=== PATIENT | male | born 1950 | race Caucasian/White ===

== ENCOUNTER 2017-02-03 07:00 | Inpatient (IN) | payer OTHER ==
[2017-02-03] MEDS ORDERED: methylPREDNISolone SOD SUCCI 125 MG/2 ML VIAL IV STA (07:07)
--- NOTE | 2017-02-03 07:09 | ED ---
General Adult HPI - General Chief complaint: Shortness of Breath Stated complaint: MARTHA Time Seen by Provider: 02/03/17 07:00 Source: patient, EMS, RN notes reviewed Mode of arrival: EMS Limitations: no limitations - History of Present Illness Initial comments: This is a 66-year-old male who presents emergency Department stating he does not know if he has COPD but he does take daily breathing treatments. Patient states she was a smoker up until about one month ago. Patient states over the last 2 weeks his difficulty breathing is gotten worse he continues to more treatments but it got to the point today that he needed to call EMS. Patient denies any recent fever chills or cough. Patient denies any palpitations or chest pain. Patient denies any abdominal pain patient denies nausea vomiting diarrhea. Patient denies lightheadedness dizziness or near syncopal episode. Patient denies headache patient denies numbness weakness. Patient states she moved here from [place] a few months ago because the breathing there was worsening and is here. Patient denies any injury or trauma. Patient denies any leg swelling or calf pain. - Related Data Home Medications Medication Instructions Recorded Confirmed Albuterol Inhaler [Ventolin Hfa 2 puff INHALATION RT-Q6H PRN 02/03/17 02/03/17 Inhaler] Albuterol Nebulized [Ventolin 2.5 mg INHALATION RT-TID PRN 02/03/17 02/03/17 Nebulized] Albuterol Sulfate [Proair Hfa] 1 - 2 puff INHALATION RT-Q6H PRN 02/03/17 Fluticasone/Salmeterol [Advair 1 puff INHALATION RT-BID 02/03/17 02/03/17 250-50 Diskus] Ibuprofen [Motrin] 600 mg PO BID PRN 02/03/17 02/03/17 Montelukast [Singulair] 10 mg PO HS 02/03/17 02/03/17 diphenhydrAMINE HCL [Benadryl] 50 mg PO HS PRN 02/03/17 02/03/17 Allergies Allergy/AdvReac Type Severity Reaction Status Date / Time acetaminophen [From Tylenol] AdvReac Nausea & Verified 02/03/17 08:19 Vomiting Review of Systems ROS Statement: Those systems with pertinent positive or pertinent negative responses have been documented in the HPI. ROS Other: All systems not noted in ROS Statement are negative. Past Medical History Past Medical History: COPD, Hypertension History of Any Multi-Drug Resistant Organisms: None Reported Past Surgical History: Appendectomy Past Psychological History: No Psychological Hx Reported Smoking Status: Former smoker Past Alcohol Use History: Occasional Past Drug Use History: None Reported General Exam - General Exam Comments Initial Comments: GENERAL: Patient is well-developed and well-nourished. Patient is nontoxic and well- hydrated and is in moderate distress. ENT: Neck is soft and supple. No significant lymphadenopathy is noted. Oropharynx is clear. Moist mucous membranes. Neck has full range of motion without eliciting any pain. EYES: The sclera were anicteric and conjunctiva were pink and moist. Extraocular movements were intact and pupils were equal round and reactive to light. Eyelids were unremarkable. PULMONARY: Patient is wheezing diffusely CARDIOVASCULAR: Patient is tachycardic at about 115 beats a minute ABDOMEN: Soft and nontender with normal bowel sounds. No palpable organomegaly was noted. There is no palpable pulsatile mass. SKIN: Skin is clear with no lesions or rashes and otherwise unremarkable. NEUROLOGIC: Patient is alert and oriented x3. Cranial nerves II through XII are grossly intact. Motor and sensory are also intact. Normal speech, volume and content. Symmetrical smile. MUSCULOSKELETAL: Normal extremities with adequate strength and full range of motion. No lower extremity swelling or edema. No calf tenderness. LYMPHATICS: No significant lymphadenopathy is noted PSYCHIATRIC: Normal psychiatric evaluation. Normal interpersonal interactions appears functionally intact in deals appropriately with others. No signs of depression. No signs of anxiety. Limitations: no limitations Course Vital Signs 02/03/17 02/03/17 02/03/17 07:02 07:18 07:37 Pulse Rate 117 H 98 Respiratory 26 H 24 Rate Blood Pressure 205/106 O2 Sat by Pulse 98 97 Oximetry 02/03/17 08:13 Pulse Rate 103 H Respiratory 24 Rate Blood Pressure 152/75 O2 Sat by Pulse 90 L Oximetry Medical Decision Making - Medical Decision Making patient's EKG shows sinus tachycardia at 116 bpm VA interval 258 QRSs in 2 QT interval 310 QTC is 4:30. Patient's EKG shows no ST segment elevation or depression or T wave abnormalities are noted. Chest x-ray showed no signs of pneumonia. After patient received 3 consecutive treatments and steroids patient started feel better though. Patient's oxygenation was in the low 90s - Lab Data Result diagrams: 02/03/17 07:06 02/03/17 07:06 Lab Results 02/03/17 02/03/17 02/03/17 Range/Units 07:06 07:06 07:06 WBC 8.4 (3.8-10.6) k/uL RBC 5.47 (4.30-5.90) m/uL Hgb 15.6 (13.0-17.5) gm/dL Hct 50.9 (39.0-53.0) % MCV 93.0 (80.0-100.0) fL MCH 28.6 (25.0-35.0) pg MCHC 30.7 L (31.0-37.0) g/dL RDW 15.1 (11.5-15.5) % Plt Count 194 (150-450) k/uL Neutrophils % 63 % Lymphocytes % 16 % Monocytes % 6 % Eosinophils % 11 % Basophils % 1 % Neutrophils # 5.3 (1.3-7.7) k/uL Lymphocytes # 1.4 (1.0-4.8) k/uL Monocytes # 0.5 (0-1.0) k/uL Eosinophils # 0.9 H (0-0.7) k/uL Basophils # 0.1 (0-0.2) k/uL PT (9.0-12.0) sec INR (<1.2) APTT (22.0-30.0) sec Sodium 145 (137-145) mmol/L Potassium 4.8 (3.5-5.1) mmol/L Chloride 105 (98-107) mmol/L Carbon Dioxide 29 (22-30) mmol/L Anion Gap 11 mmol/L BUN 16 (9-20) mg/dL Creatinine 0.90 (0.66-1.25) mg/dL Est GFR (MDRD) Af Amer >60 (>60 ml/min/1.73 sqM) Est GFR (MDRD) Non-Af >60 (>60 ml/min/1.73 sqM) Glucose 123 H (74-99) mg/dL Calcium 8.9 (8.4-10.2) mg/dL Magnesium 2.2 (1.6-2.3) mg/dL Total Bilirubin 0.4 (0.2-1.3) mg/dL AST 22 (17-59) U/L ALT 32 (21-72) U/L Alkaline Phosphatase 83 (38-126) U/L Total Creatine Kinase 69 (55-170) U/L CK-MB (CK-2) 1.0 (0.0-2.4) ng/mL CK-MB (CK-2) Rel Index 1.4 Troponin I <0.012 (0.000-0.034) ng/mL NT-Pro-B Natriuret Pep pg/mL Total Protein 7.3 (6.3-8.2) g/dL Albumin 4.3 (3.5-5.0) g/dL 02/03/17 02/03/17 Range/Units 07:06 07:06 WBC (3.8-10.6) k/uL RBC (4.30-5.90) m/uL Hgb (13.0-17.5) gm/dL Hct (39.0-53.0) % MCV (80.0-100.0) fL MCH (25.0-35.0) pg MCHC (31.0-37.0) g/dL RDW (11.5-15.5) % Plt Count (150-450) k/uL Neutrophils % % Lymphocytes % % Monocytes % % Eosinophils % % Basophils % % Neutrophils # (1.3-7.7) k/uL Lymphocytes # (1.0-4.8) k/uL Monocytes # (0-1.0) k/uL Eosinophils # (0-0.7) k/uL Basophils # (0-0.2) k/uL PT 9.8 (9.0-12.0) sec INR 1.0 (<1.2) APTT 26.1 (22.0-30.0) sec Sodium (137-145) mmol/L Potassium (3.5-5.1) mmol/L Chloride (98-107) mmol/L Carbon Dioxide (22-30) mmol/L Anion Gap mmol/L BUN (9-20) mg/dL Creatinine (0.66-1.25) mg/dL Est GFR (MDRD) Af Amer (>60 ml/min/1.73 sqM) Est GFR (MDRD) Non-Af (>60 ml/min/1.73 sqM) Glucose (74-99) mg/dL Calcium (8.4-10.2) mg/dL Magnesium (1.6-2.3) mg/dL Total Bilirubin (0.2-1.3) mg/dL AST (17-59) U/L ALT (21-72) U/L Alkaline Phosphatase (38-126) U/L Total Creatine Kinase (55-170) U/L CK-MB (CK-2) (0.0-2.4) ng/mL CK-MB (CK-2) Rel Index Troponin I (0.000-0.034) ng/mL NT-Pro-B Natriuret Pep 278 pg/mL Total Protein (6.3-8.2) g/dL Albumin (3.5-5.0) g/dL Disposition Clinical Impression: COPD with acute exacerbation Disposition: ADMITTED IP TO THIS HOSP Referrals: None,Stated [Primary Care Provider] - 1-2 days Time of Disposition: 10:02
[2017-02-03 07:28] LABS: Basophils # (A) 0.1 k/uL (0-0.2); Basophils % (A) 1 %; CH 28.9; CHCM 31.2; Eosinophils # (A) 0.9 k/uL (0-0.7); Eosinophils % (A) 11 %; HCT 50.9 % (39.0-53.0); HGB 15.6 gm/dL (13.0-17.5); Luc # (Auto) 0.18; Luc % (Auto) 2; Lymphocytes # (A) 1.4 k/uL (1.0-4.8); Lymphocytes % (A) 16 %; MCH 28.6 pg (25.0-35.0); MCHC 30.7 g/dL (31.0-37.0); Mean Platelet Volume 8.6; Monocytes # (A) 0.5 k/uL (0-1.0); Monocytes % (A) 6 %; Neutrophils # (A) 5.3 k/uL (1.3-7.7); Neutrophils % (A) 63 %; RBC 5.47 m/uL (4.30-5.90); RDW 15.1 % (11.5-15.5); WBC 8.4 k/uL (3.8-10.6)
[2017-02-03] MEDS: ALBUTEROL NEBULIZED 2.5 MG/3 ML INHALATION STA ×2 (07:36→11:57)
[2017-02-03 07:38] LABS: ALT 32 U/L (21-72); AST 22 U/L (17-59); Alkaline Phosphatase 83 U/L (38-126); Anion Gap 11 mmol/L; Blood Urea Nitrogen 16 mg/dL (9-20); Calcium 8.9 mg/dL (8.4-10.2); Carbon Dioxide 29 mmol/L (22-30); Chloride 105 mmol/L (98-107); Glucose 123 mg/dL (74-99); Magnesium 2.2 mg/dL (1.6-2.3); Non-African American GFR(MDRD) >60 (>60 ml/min/1.73 sqM); Partial Thromboplastin Time 26.1 sec (22.0-30.0); Potassium 4.8 mmol/L (3.5-5.1); Prothrombin Time 9.8 sec (9.0-12.0); Sodium 145 mmol/L (137-145); Total Bilirubin 0.4 mg/dL (0.2-1.3); Total Protein 7.3 g/dL (6.3-8.2)
--- NOTE | 2017-02-03 08:19 | XR ---
EXAMINATION TYPE: XR chest 2V DATE OF EXAM: 02/03/2017 COMPARISON: NONE HISTORY: Shortness of breath with history of asthma TECHNIQUE: Frontal and lateral views of the chest are obtained. FINDINGS: There is no focal air space opacity, pleural effusion, or pneumothorax seen. Peribronchial cuffing is appreciated around the segmental bronchi to the left lower lobe. The cardiac silhouette size is within normal limits. The osseous structures are intact. IMPRESSION: Peribronchial thickening surrounding the segmental bronchi to the left lower lobe sugges tive of bronchitis.
[2017-02-03 08:39] LABS: Troponin I <0.012 ng/mL (0.000-0.034)
[2017-02-03 08:56] LABS: Creatine Kinase 69 U/L (55-170)
[2017-02-03] MEDS ORDERED: SODIUM CHLORIDE 0.9% 1,000 ML IV STA (10:20)
[2017-02-03] MEDS ORDERED: ALBUTEROL NEBULIZED (CONC) 2.5 MG, SODIUM CHLORIDE 0.9% NEBULIZ 3 ML INHALATION STA ×2 (11:52)
[2017-02-03] MEDS ORDERED: ALBUTEROL NEBULIZED 2.5 MG/3 ML INHALATION PRN (12:35)
[2017-02-03] MEDS ORDERED: BENZONATATE 100 MG CAP PO PRN (12:35)
[2017-02-03] MEDS ORDERED: RX INFO: IV CONTRAST WAS GIVEN 1 EACH MISC MISCELLANE PRN (12:37)
[2017-02-03] MEDS ORDERED: ONDANSETRON 4 MG/2 ML VIAL IVP PRN (12:40)
[2017-02-03] MEDS ORDERED: MELATONIN 3 MG TABLET PO PRN (12:41)
[2017-02-03] MEDS ORDERED: HYDROcodone/APAP 5-325MG 1 EACH TAB PO PRN (12:41)
[2017-02-03] MEDS ORDERED: DOCUSATE 100 MG CAP PO PRN (12:41)
--- NOTE | 2017-02-03 14:21 | CT ---
EXAMINATION TYPE: CT chest angio for PE DATE OF EXAM: 02/03/2017 COMPARISON: Chest x-ray 02/03/2017 HISTORY: Dyspnea CT DLP: 786 mGycm Automated exposure control for dose reduction was used. CONTRAST: CT Chest for pulmonary embolism performed with with IV Contrast, patient injected with 100 mL of Omni paque 350. FINDINGS: LUNGS: The lungs are remarkable for a soft tissue nodule in the right lower lobe measuring 12 mm imme diately anterior to the spine to the right of midline in the right lower lobe bronchial wall thickeni ng is somewhat diffuse compatible with chest x-ray findings. There is no pleural effusion or pneumoth orax seen. The tracheobronchial tree is patent. MEDIASTINUM: There is satisfactory enhancement of the pulmonary artery and its branches, there is no CT evidence for pulmonary embolism. There are no greater than 1 cm hilar or mediastinal lymph nodes. Pulmonary artery mildly prominent. No pericardial effusion is seen. AORTA: No additional significant abnormality is seen. OTHER: Subcentimeter low-attenuation focus within the liver may represent cyst. Colonic interpositio n seen anterior to the liver. IMPRESSION: Correlate for bronchitis. Indeterminate soft tissue nodule right lower lobe, follow-up is recommended. Consider pulmonary arter y hypertension. Pulmonary embolism is not evident.
[2017-02-03 14:42] VITALS: BMI 35.9
[2017-02-03] MEDS: methylPREDNISolone SOD SUCCI 125 MG/2 ML VIAL IV SCH ×2 (14:49→18:07)
[2017-02-03] MEDS: AZITHROMYCIN 500 MG TAB PO SCH (14:49)
[2017-02-03] MEDS ORDERED: hydrALAZINE HCL 20 MG/ML 1 ML VIAL IVP PRN (15:03)
--- NOTE | 2017-02-03 15:15 | P.HPIM ---
History of Present Illness H&P Date: 02/03/17 Chief Complaint: shortness of breath Patient is a 66-year-old male with a history of asthma, hypertension for which he does not take any medications and is only during his breathing problem, and prior heavy tobacco abuse who presented with complaints of shortness breath. He states that he traveled here by car from [place] approximately 4-6 weeks ago. For the last 2 weeks he's had shortness of breath that is worse with exertion and better with rest. It is associated with wheezing. He did not have a cough until he presented to the ER today. He does have a typical a.m. cough on waking that is nonproductive. He denies any recent fevers or chills. Denies any rhinorrhea. Sometimes when his breathing is bad he gets some chest tightness. At home he takes an Advair inhaler, a pro- air inhaler, and a Ventolin inhaler. He also has as needed albuterol nebulizer. He had been using his nebulizer approximately 3 times daily at home but yesterday he used 6 times. His significant other believes that this all started after being exposed to fresh paint fumes. He has never been hospitalized for his breathing before but has required antibiotics and steroid frequently. The last time was in October. They state that every time he stops antibiotics and steroids and breathing gets worse. He has not been diagnosed with COPD but has been diagnosed with asthma. He has never had formal pulmonary function testing. He has never seen a [facility] group leader. He has never been intubated. He stopped smoking approximately one month ago. They also report that he had some facial swelling a few days ago which responded to treatment with gargled saltwater and Benadryl. In the ER he was given albuterol and Solu-Medrol. He did not have significant improvement in request was made for admission. On arrival to the floor he was diffusely wheezy and had an oxygen saturation of 83%. The nurse called me immediately and was given an order for an albuterol updraft 1. On my arrival to the room he was receiving his albuterol updraft and his oxygenation had improved to 96%. Review of Systems General: no fever/chills, no rigors, no weight loss/weight gain, no change in appetite Eyes: No double vision, no unusual blurry vision, no loss of vision ENT: No rhinorrhea, congestion, no trush Cardiovascular: + Chest tightness with shortness of breath, no palpitations, no syncope, no edema, Noo paroxysmal nocturnal dyspnea, No dizziness Pulmonary: + Shortness of breath, + wheezing, no cough, hemoptysis Abdominal: No abdominal pain, no constipation, no diarrhea, no vomiting, no nausea, no distention Genitourinary: No dysuria, no urinary frequency, no hematuria, no unusual discharge/odor Neuro: No unusual paresthesias, no unusual paresis/paralysis, no headache Dermatologic: No unusual rashes, no unusual lesions, no unusual changes in nails Endocrinology: No intolerance to heat/cold, no excessive thirst,] no unusual fatigue Hematologic: No unusual bruising or bleeding, no unusual cervical lymphadenopathy Psychiatric: No changes in mood or behaviors, no changes in sleep pattern Past Medical History Past Medical History: Asthma, Hypertension, Pneumonia Additional Past Medical History / Comment(s): Pt states he has never been diagnosed with COPD, pt states he has had HTN and been on medication in past and then quit smoking and was taken off because he started running low pressures , occasional lower leg/pedal edema, bronchitis, stomach ulcer in past. History of Any Multi-Drug Resistant Organisms: None Reported Past Surgical History: Appendectomy Past Psychological History: No Psychological Hx Reported Additional Psychological History / Comment(s): Pt resides with his significant other. They just moved here from [place] less than 2 months ago. He has a nebulizer at home. He had an appt this Wednesday to establish with a primary care physician this Wednesday. He was seeing a PCP in [place], [place]-Dr. Elizalde or Dr. Duran. He is independent. Smoking Status: Former smoker Past Alcohol Use History: Occasional Additional Past Alcohol Use History / Comment(s): Pt started smoking in 1963. He had quit for 4 yrs once and quit again about 1 month ago. He averaged a ppd but occasionally smoked more than that. Past Drug Use History: None Reported - Past Family History Mother Family Medical History: Dementia, Diabetes Mellitus Additional Family Medical History / Comment(s): Mother is 86yrs old and is a resident at [facility] Father Additional Family Medical History / Comment(s): Father at the age of 96yrs after a fall with rib fractures. Medications and Allergies Home Medications Medication Instructions Recorded Confirmed Type Albuterol Inhaler [Ventolin Hfa 2 puff INHALATION RT-Q6H PRN 02/03/17 02/03/17 History Inhaler] Albuterol Nebulized [Ventolin 2.5 mg INHALATION RT-TID PRN 02/03/17 02/03/17 History Nebulized] Albuterol Sulfate [Proair Hfa] 1 - 2 puff INHALATION RT-Q6H PRN 02/03/17 History Fluticasone/Salmeterol [Advair 1 puff INHALATION RT-BID 02/03/17 02/03/17 History 250-50 Diskus] Ibuprofen [Motrin] 600 mg PO BID PRN 02/03/17 02/03/17 History Montelukast [Singulair] 10 mg PO HS 02/03/17 02/03/17 History diphenhydrAMINE HCL [Benadryl] 50 mg PO HS PRN 02/03/17 02/03/17 History Allergies Allergy/AdvReac Type Severity Reaction Status Date / Time acetaminophen [From Tylenol] AdvReac Nausea & Verified 02/03/17 08:19 Vomiting Physical Exam Osteopathic Statement: *. No significant issues noted on an osteopathic structural exam other than those noted in the History and Physical/Consult. Vitals: Vital Signs Pulse Resp BP Pulse Ox 02/03/17 12:14 95 02/03/17 12:10 105 H 02/03/17 11:59 101 H 02/03/17 10:58 91 22 162/75 91 L 02/03/17 08:13 103 H 24 152/75 90 L 02/03/17 07:37 98 02/03/17 07:18 24 97 02/03/17 07:02 117 H 26 H 205/106 98 Intake and Output 02/02/17 02/03/17 02/03/17 22:59 06:59 14:59 Other: Weight 113.398 kg Patient Weight 02/04/17 06:59 Weight 113.398 kg General: non toxic, mild distress, appears at stated age, obese Derm: no rashes, no lesions, no ulcers, no unusual ecchymoses Head: atraumatic, normocephalic, symmetric Eyes: EOMI, no lid lag, anicteric sclera, pupils equal round reactive to light ENT: no post nasal drip, + thrush , nearest patent, no pharyngeal erythema Neck: No thyromegaly, no cervical lymphadenopathy, trachea midline, supple Mouth: no lip lesion, mucus membranes moist Cardiovascular: S1S2 reg, no murmur, positive posterior tibial pulse bilateral, no edema , no JVD, no clubbing, no cyanosis, capillary refill less than 2 seconds Lungs: Decreased breath sounds bilaterally with diffuse wheezing, , no accessory muscle use Abdominal: soft, nontender to palpation, no guarding, no appreciable organomegaly, normal bowel sounds Ext: no gross muscle atrophy, muscle strength 5 out of 5 in all 4 extremities grossly, no contractures, Neuro: CN II-XI grossly intact, light touch intact all 4 extremities, finger to nose within normal limits, Psych: Alert, oriented, appropriate affect Results CBC & Chem 7: 02/03/17 07:06 02/03/17 07:06 Labs: Abnormal Lab Results - Last 24 Hours (Table) 02/03/17 02/03/17 Range/Units 07:06 07:06 MCHC 30.7 L (31.0-37.0) g/dL Eosinophils # 0.9 H (0-0.7) k/uL Glucose 123 H (74-99) mg/dL Thrombosis Risk Factor Assmnt - DVT/VTE Prophylaxis DVT/VTE Prophylaxis: Pharmacologic Prophylaxis ordered - Choose All That Apply Any of the Below Risk Factors Present?: Yes Each Factor Represents 1 point: Abnormal pulmonary function (COPD), Obesity ( BMI >25) Other Risk Factors: Yes Each Risk Factor Represents 2 Points: Age 61-74 years Other congenital or acquired thrombophilia - If yes, enter type in comment: No Thrombosis Risk Factor Assessment Total Risk Factor Score: 4 Thrombosis Risk Factor Assessment Level: Moderate Risk Assessment and Plan (1) Obesity (BMI 35.0-39.9 without comorbidity) Status: Acute (2) COPD with acute exacerbation Status: Acute (3) Elevated blood pressure reading Status: Acute (4) Hyperglycemia Status: Acute (5) Acute respiratory failure with hypoxia Status: Acute (6) Pulmonary nodule Status: Acute Plan: #Acute exacerbation of probable COPD-Pulmicort twice daily, DuoNeb every 6, when necessary albuterol, Solu-Medrol 60 mg every 6 hours, Zithromax, has never had formal pulmonary function tests would recommend doing this as an outpatient. #Acute hypoxic respiratory failure- treatment as above #Morbid obesity- structured outpatient weight loss #Past history of hypertension- not currently on medication, patient states that his blood pressure is elevated every time he has breathing problems, follow blood pressure, when necessary hydralazine, if remains elevated, consider chronic therapy. #Right pulmonary nodule- Consult pulmonary with this being at the borderline # Hx of tobacco abuse- quit one month ago, encourage patient to avoid restarting Surrogate decision-maker: Significant other Yoli Garcia [phone] CODE STATUS: DO NOT RESUSCITATE, no intubation DVT prophylaxis: Lovenox Discussed with: Patient, Significant other, respiratory, and nursing Anticipated discharge: 48-[address]: Home A total of 60 minutes was spent on the care of this complex patient more than 50 % of the time was spent in counseling and care coordination.
[2017-02-03] MEDS: IPRATROPIUM-ALBUTEROL 3 ML NEB INHALATION SCH ×2 (16:14→20:48)
[2017-02-03] MEDS: NYSTATIN 100,000 UNIT/ML SUSP 500,000 UNIT/5 ML CUP PO SCH ×2 (18:07→21:51)
[2017-02-03] MEDS: BUDESONIDE 0.5 MG/2 ML NEBU INHALATION SCH (20:48)
[2017-02-03] MEDS: guaiFENesin 600 MG TABLET.ER PO SCH (21:52)
[2017-02-04] MEDS: methylPREDNISolone SOD SUCCI 125 MG/2 ML VIAL IV SCH ×4 (00:15→18:05)
[2017-02-04] MEDS: IPRATROPIUM-ALBUTEROL 3 ML NEB INHALATION SCH ×4 (07:13→20:21)
[2017-02-04] MEDS: BUDESONIDE 0.5 MG/2 ML NEBU INHALATION SCH (07:13)
[2017-02-04] MEDS: guaiFENesin 600 MG TABLET.ER PO SCH ×2 (08:12→21:06)
[2017-02-04] MEDS: AZITHROMYCIN 500 MG TAB PO SCH (08:12)
[2017-02-04] MEDS: PANTOPRAZOLE 40 MG TABLET PO SCH (08:12)
[2017-02-04] MEDS: ENOXAPARIN 40 MG/0.4 ML SYRINGE SQ SCH (08:12)
[2017-02-04] MEDS: NYSTATIN 100,000 UNIT/ML SUSP 500,000 UNIT/5 ML CUP PO SCH ×4 (08:12→21:06)
[2017-02-04 08:19] LABS: CH 27.7; CHCM 30.3; HCT 46.9 % (39.0-53.0); HDW 2.26; HGB 14.8 gm/dL (13.0-17.5); Hypochromasia Moderate; MCHC 31.7 g/dL (31.0-37.0); MCV 91.7 fL (80.0-100.0); Mean Platelet Volume 8.5; RBC 5.11 m/uL (4.30-5.90); RDW 13.9 % (11.5-15.5); WBC 9.1 k/uL (3.8-10.6)
[2017-02-04 08:36] LABS: ALT 31 U/L (21-72); AST 19 U/L (17-59); Alkaline Phosphatase 70 U/L (38-126); Anion Gap 10 mmol/L; Blood Urea Nitrogen 16 mg/dL (9-20); Calcium 8.9 mg/dL (8.4-10.2); Carbon Dioxide 28 mmol/L (22-30); Chloride 103 mmol/L (98-107); Glucose 146 mg/dL (74-99); Magnesium 2.1 mg/dL (1.6-2.3); Non-African American GFR(MDRD) >60 (>60 ml/min/1.73 sqM); Phosphorous 3.4 mg/dL (2.5-4.5); Potassium 4.8 mmol/L (3.5-5.1); Sodium 141 mmol/L (137-145); Total Bilirubin 0.2 mg/dL (0.2-1.3); Total Protein 7.2 g/dL (6.3-8.2)
[2017-02-04] MEDS ORDERED: IBUPROFEN 600 MG TAB PO PRN (11:56)
[2017-02-04] MEDS ORDERED: ALBUTEROL INHALER 60 PUFF/8 GM INHALER INHALATION PRN (11:56)
[2017-02-04] MEDS ORDERED: IPRATROPIUM-ALBUTEROL 3 ML NEB INHALATION PRN (12:15)
--- NOTE | 2017-02-04 12:15 | P.CNPUL ---
History of Present Illness Consult date: 02/04/17 Reason for consult: dyspnea, cough, asthma, COPD, hypoxemia, abnormal CXR/CT Chief complaint: Shortness of breath History of present illness: Consult dated 02/04/2017 66-year-old male who recently moved back to this area from [place]. The patient apparently carries with him a diagnosis of asthma/COPD. Heavy smoker for 40 years. The patient currently stopped smoking about 2 months ago. The patient states that he came back to [place] from [place] because his breathing was worse and [facility]. He states his breathing seems better here. He has really not establish himself with a lung doctor or any family doctor in this area. Persisting a family doctor and [facility]. The patient is a heavy smoker. He tells me he was diagnosed as having asthma many years back. His complaints include shortness of breath chest tightness wheezing cough chest congestion and phlegm production. No fever no chills. No chest pain. He did have lower extremity edema. His breathing got so bad that he ended up calling EMS. His medical problem list includes COPD/asthma and hypertension. His medications included Benadryl Singulair Motrin Advair albuterol inhaler updrafts with albuterol. Phenotypically or physiologically, this patient appears to be a blue bloater or chronic bronchitic. Review of Systems A 12 point review of system is positive for shortness of breath difficulty breathing chest tightness wheezing coughing and phlegm production. Not much phlegm. No chest pain. No fever no chills. No nausea vomiting or diarrhea. Past Medical History Past Medical History: Asthma, Hypertension, Pneumonia Additional Past Medical History / Comment(s): Pt states he has never been diagnosed with COPD, pt states he has had HTN and been on medication in past and then quit smoking and was taken off because he started running low pressures , occasional lower leg/pedal edema, bronchitis, stomach ulcer in past. History of Any Multi-Drug Resistant Organisms: None Reported Past Surgical History: Appendectomy Past Psychological History: No Psychological Hx Reported Additional Psychological History / Comment(s): Pt resides with his significant other. They just moved here from [place] less than 2 months ago. He has a nebulizer at home. He had an appt this Wednesday to establish with a primary care physician this Wednesday. He was seeing a PCP in [place], [place]-Dr. Elizalde or Dr. Duran. He is independent. Smoking Status: Former smoker Past Alcohol Use History: Occasional Additional Past Alcohol Use History / Comment(s): Pt started smoking in 1963. He had quit for 4 yrs once and quit again about 1 month ago. He averaged a ppd but occasionally smoked more than that. Past Drug Use History: None Reported - Past Family History Mother Family Medical History: Dementia, Diabetes Mellitus Additional Family Medical History / Comment(s): Mother is 86yrs old and is a resident at [facility] Father Additional Family Medical History / Comment(s): Father at the age of 96yrs after a fall with rib fractures. Medications and Allergies Home Medications Medication Instructions Recorded Confirmed Type Albuterol Inhaler [Ventolin Hfa 2 puff INHALATION RT-Q6H PRN 02/03/17 02/03/17 History Inhaler] Albuterol Nebulized [Ventolin 2.5 mg INHALATION RT-TID PRN 02/03/17 02/03/17 History Nebulized] Albuterol Sulfate [Proair Hfa] 1 - 2 puff INHALATION RT-Q6H PRN 02/03/17 History Fluticasone/Salmeterol [Advair 1 puff INHALATION RT-BID 02/03/17 02/03/17 History 250-50 Diskus] Ibuprofen [Motrin] 600 mg PO BID PRN 02/03/17 02/03/17 History Montelukast [Singulair] 10 mg PO HS 02/03/17 02/03/17 History diphenhydrAMINE HCL [Benadryl] 50 mg PO HS PRN 02/03/17 02/03/17 History Allergies Allergy/AdvReac Type Severity Reaction Status Date / Time acetaminophen [From Tylenol] AdvReac Nausea & Verified 02/03/17 08:19 Vomiting Physical Exam Osteopathic Statement: *. No significant issues noted on an osteopathic structural exam other than those noted in the History and Physical/Consult. Vitals: Vital Signs Temp Pulse Pulse Pulse Resp BP Pulse Ox 02/04/17 11:14 101 H 02/04/17 11:05 104 H 02/04/17 08:00 94 18 02/04/17 07:31 96 02/04/17 07:13 89 98 02/04/17 07:00 98.5 F 108 H 18 166/88 91 L 02/04/17 00:00 99 16 02/03/17 21:03 98.4 F 99 16 137/74 92 L 02/03/17 20:51 112 H 02/03/17 16:28 116 H 02/03/17 16:16 116 H 02/03/17 14:52 97.9 F 112 H 18 165/86 90 L 02/03/17 12:14 95 02/03/17 12:10 105 H Intake and Output 02/03/17 02/04/17 02/04/17 22:59 06:59 14:59 Intake Total 80 100 Output Total 200 Balance -120 100 Intake: Oral 80 100 Output: Urine 200 Other: Voiding Method Toilet Toilet Toilet # Voids 1 3 No acute distress, mild shortness of breath with conversation. Oriented 3. HEENT examination is grossly unremarkable. Extremities membranes are moist. He does have a plethoric facies. Neck supple. Full range of motion. No adenopathy or thyromegaly. Neck veins are flat. Cardiovascular examination reveals regular rhythm rate. S1-S2 normal. No S3- S4 murmur. Heart sounds are distant. Lungs reveal some coarse rhonchi. Breath sounds are diminished. This prolongation on forced maneuver. Patient coughs and wheezes on forced maneuver. Abdomen is obese. Bowel sounds are heard. Extremities are intact. There is some edema. Some 1+. No cyanosis or clubbing. Skin without rash. Neurologic examination is nonfocal. Results - Laboratory Findings CBC and BMP: 02/04/17 07:07 02/04/17 07:07 PT/INR, D-dimer PT 9.8 sec (9.0-12.0) 02/03/17 07:06 INR 1.0 (<1.2) 02/03/17 07:06 Abnormal lab findings: Abnormal Labs 02/03/17 02/03/17 02/04/17 07:06 07:06 07:07 MCHC 30.7 L Eosinophils # 0.9 H Glucose 123 H 146 H - Diagnostic Findings Chest x-ray: image reviewed CT scan - chest: image reviewed (X-rays labs and medications are all reviewed.) Assessment and Plan Plan: Assessment and plan dated 02/04/2017 COPD exacerbation complicated by purulent tracheobronchitis Morbid obesity Hypertension by history Chronic tobacco use Rule out sleep apnea syndrome Probable pulmonary hypertension Rule out pickwickian syndrome Plan We'll review the medications. The patient should be on DuoNeb's 4 times a day and when necessary as well as Pulmicort 1 mg and performance twice a day. The patient should also be on Solu-Medrol 60 mg every 6 and some sort of oral antibiotic. Additional recommendations and suggestions are forthcoming. We'll need to see him as an outpatient once he is better and believes the hospital. He'll need a 6 minute walk distance a PFT and probably a sleep study. Additional recommendations and suggestions are forthcoming. He'll need to be evaluated for pickwickian syndrome as well as sleep apnea syndrome. Time with Patient: Greater than 30
--- NOTE | 2017-02-04 14:35 | P.PN ---
Subjective Principal diagnosis: Acute COPD exacerbation Patient is a 66-year-old male with a history of asthma, hypertension for which he does not take any medications and is only during his breathing problem, and prior heavy tobacco abuse who presented with complaints of shortness breath. He states that he traveled here by car from [place] approximately 4-6 weeks ago. For the last 2 weeks he's had shortness of breath that is worse with exertion and better with rest. It is associated with wheezing. He did not have a cough until he presented to the ER today. He does have a typical a.m. cough on waking that is nonproductive. He denies any recent fevers or chills. Denies any rhinorrhea. Sometimes when his breathing is bad he gets some chest tightness. At home he takes an Advair inhaler, a pro- air inhaler, and a Ventolin inhaler. He also has as needed albuterol nebulizer. He had been using his nebulizer approximately 3 times daily at home but yesterday he used 6 times. His significant other believes that this all started after being exposed to fresh paint fumes. He has never been hospitalized for his breathing before but has required antibiotics and steroid frequently. The last time was in October. They state that every time he stops antibiotics and steroids and breathing gets worse. He has not been diagnosed with COPD but has been diagnosed with asthma. He has never had formal pulmonary function testing. He has never seen a tow truck driver. He has never been intubated. He stopped smoking approximately one month ago. They also report that he had some facial swelling a few days ago which responded to treatment with gargled saltwater and Benadryl. In the ER he was given albuterol and Solu-Medrol. He did not have significant improvement in request was made for admission. On arrival to the floor he was diffusely wheezy and had an oxygen saturation of 83%. The nurse called me immediately and was given an order for an albuterol updraft 1. On my arrival to the room he was receiving his albuterol updraft and his oxygenation had improved to 96% Patient is feeling slightly better today, still more short of breath with ambulation. No chest pain or palpitations, no dizziness, nausea. Has good appetite, no changes with bowel movements or urination. Objective - Vital Signs Vital signs: Vital Signs Temp 98.5 F 02/04/17 07:00 Pulse 96 02/04/17 07:31 Resp 18 02/04/17 07:00 BP 166/88 02/04/17 07:00 Pulse Ox 98 02/04/17 07:13 Intake & Output 02/03/17 02/04/17 02/04/17 18:59 06:59 18:59 Intake Total 180 Output Total 200 Balance -200 180 Weight 113.398 kg Intake: Oral 180 Output: Urine 200 Other: Voiding Method Toilet Toilet # Voids 1 3 - Exam Physical exam : Gen. -obese, no acute distress, awake alert oriented 3 . HEENT -normocephalic, atraumatic, sclera anicteric, oral mucosa moist and clear . Neck supple , trachea midline , no thyromegaly. cardiovascular exam-normal S1-S2, regular rate and rhythm. Chest-diminished breath sounds bilaterally with wheezes throughout. Abdomen-obese, nondistended, active bowel sounds, no organomegaly or masses. Extremities-no edema, clubbing or cyanosis, no calf tenderness. - Labs CBC & Chem 7: 02/04/17 07:07 02/04/17 07:07 Labs: Abnormal Lab Results - Last 24 Hours (Table) 02/04/17 Range/Units 07:07 Glucose 146 H (74-99) mg/dL Microbiology - Last 24 Hours (Table) 02/03/17 07:06 Blood Culture - Preliminary Blood No Growth after 24 hours Assessment and Plan (1) Acute respiratory failure with hypoxia Narrative/Plan: Continue supplemental oxygen, we will attempt to wean off when patient starts feeling better. Status: Acute (2) COPD with acute exacerbation Narrative/Plan: Continue Pulmicort, IV steroids, continue bronchodilators. Add incentive spirometry. PFTs as an outpatient. Status: Acute (3) Elevated blood pressure reading Narrative/Plan: Monitor blood pressure, hydralazine when necessary. Status: Acute (4) Hyperglycemia Narrative/Plan: Patient receiving IV steroids, monitor glucose. Status: Acute (5) Obesity (BMI 35.0-39.9 without comorbidity) Status: Acute (6) Pulmonary nodule Narrative/Plan: Awaiting pulmonology evaluation. Will need Bx, PET scan as outpatient. Status: Acute (7) DVT prophylaxis Narrative/Plan: Lovenox subcu Status: Acute
[2017-02-04] MEDS ORDERED: NON-FORMULARY DRUG (Fluticasone/Salmeterol [Advair 250-50 Diskus] 1 PUFF) INHALATION SCH (20:00)
[2017-02-04] MEDS: BUDESONIDE 1 MG/2 ML NEBU INHALATION SCH (20:21)
[2017-02-04] MEDS: FORMOTEROL FUMARATE 20 MCG/2 ML NEBU INHALATION SCH (20:21)
[2017-02-04] MEDS ORDERED: MONTELUKAST 10 MG TAB PO SCH (21:00)
[2017-02-05] MEDS: methylPREDNISolone SOD SUCCI 125 MG/2 ML VIAL IV SCH ×2 (01:01→06:10)
[2017-02-05] MEDS: IPRATROPIUM-ALBUTEROL 3 ML NEB INHALATION SCH ×4 (07:13→19:22)
[2017-02-05] MEDS: BUDESONIDE 1 MG/2 ML NEBU INHALATION SCH ×2 (07:13→19:22)
[2017-02-05] MEDS: FORMOTEROL FUMARATE 20 MCG/2 ML NEBU INHALATION SCH ×2 (07:13→19:22)
[2017-02-05 08:02] LABS: CH 28.8; CHCM 31.1; HCT 46.2 % (39.0-53.0); HDW 2.26; MCH 28.2 pg (25.0-35.0); MCHC 30.3 g/dL (31.0-37.0); MCV 93.1 fL (80.0-100.0); RBC 4.96 m/uL (4.30-5.90); RDW 14.8 % (11.5-15.5)
[2017-02-05 08:28] LABS: Anion Gap 7 mmol/L; Blood Urea Nitrogen 23 mg/dL (9-20); Calcium 8.9 mg/dL (8.4-10.2); Carbon Dioxide 31 mmol/L (22-30); Chloride 103 mmol/L (98-107); Glucose 139 mg/dL (74-99); Non-African American GFR(MDRD) >60 (>60 ml/min/1.73 sqM); Potassium 4.9 mmol/L (3.5-5.1); Sodium 141 mmol/L (137-145)
[2017-02-05] MEDS: guaiFENesin 600 MG TABLET.ER PO SCH ×2 (09:20→20:53)
[2017-02-05] MEDS: AZITHROMYCIN 500 MG TAB PO SCH (09:20)
[2017-02-05] MEDS: PANTOPRAZOLE 40 MG TABLET PO SCH (09:20)
[2017-02-05] MEDS: NYSTATIN 100,000 UNIT/ML SUSP 500,000 UNIT/5 ML CUP PO SCH ×4 (09:21→21:32)
[2017-02-05] MEDS: ENOXAPARIN 40 MG/0.4 ML SYRINGE SQ SCH (09:21)
--- NOTE | 2017-02-05 12:26 | P.PN ---
Subjective Progress note dated 02/05/2017 66-year-old male who recently moved back to [place] from [facility]. The patient does not have a doctor in this area. Carries with him a diagnosis of asthma/COPD. Heavy smoker for 40 years. Recently stopped up. about 2 months ago. The patient states that his breathing was much worse in [place] than it is here. He was admitted here with a COPD exacerbation. More likely than not have COPD mostly chronic bronchitis. I don't doubt that he has significant asthma. Is feeling a bit better. I did tell him that once he is out of the hospital, we will see him in the office to do a 6 minute walk distance and a complete pulmonary function test that we can better evaluate his chronic lung disease and that him know what his severity is. Currently he is getting oxygen therapy antibiotics bronchodilators steroids, and inhalers. Objective - Vital Signs Vital signs: Vital Signs Temp 98.4 F 02/05/17 07:58 Pulse 92 02/05/17 11:27 Resp 16 02/05/17 08:00 BP 164/80 02/05/17 09:37 Pulse Ox 90 L 02/05/17 07:58 Intake & Output 02/04/17 02/05/17 02/05/17 18:59 06:59 18:59 Intake Total 1080 640 Output Total 200 200 Balance 880 440 Weight 113.398 kg Intake: Oral 1080 640 Output: Urine 200 200 Other: Voiding Method Toilet Toilet Toilet # Voids 4 2 - Exam No acute distress, oriented 3. HEENT examination is grossly unremarkable. Mucous membranes are moist. No oral lesions. Neck supple. Full range of motion. No adenopathy or thyromegaly. Cardiovascular examination reveals regular rhythm rate. S1-S2 normal. No S3- S4 or murmur. Lungs reveal improved aeration. Breath sounds are somewhat diminished throughout though. Breath sounds are equal. A few scattered rhonchi. Slight prolongation on forced maneuver. The patient wheezes and coughs on forced. Abdomen soft bowel sounds are heard. Extremities are intact. No cyanosis clubbing or edema. Skin without rash. Neurologic examination nonfocal. - Labs CBC & Chem 7: 02/05/17 07:31 02/05/17 07:31 Labs: Abnormal Lab Results - Last 24 Hours (Table) 02/05/17 02/05/17 Range/Units 07:31 07:31 WBC 12.0 H (3.8-10.6) k/uL MCHC 30.3 L (31.0-37.0) g/dL Carbon Dioxide 31 H (22-30) mmol/L BUN 23 H (9-20) mg/dL Glucose 139 H (74-99) mg/dL Microbiology - Last 24 Hours (Table) 02/03/17 07:06 Blood Culture - Preliminary Blood No Growth after 48 hours Assessment and Plan (1) COPD (chronic obstructive pulmonary disease) Status: Acute (2) Pickwickian syndrome Status: Acute (3) Sleep apnea syndrome Status: Acute (4) Acute respiratory failure with hypoxia Status: Acute (5) COPD with acute exacerbation Status: Acute (6) Elevated blood pressure reading Status: Acute (7) Obesity (BMI 35.0-39.9 without comorbidity) Status: Acute Plan: Assessment and plan dated 02/04/2017 COPD exacerbation complicated by purulent tracheobronchitis Morbid obesity Hypertension by history Chronic tobacco use Rule out sleep apnea syndrome Probable pulmonary hypertension Rule out pickwickian syndrome Plan We'll review the medications. The patient should be on DuoNeb's 4 times a day and when necessary as well as Pulmicort 1 mg and performance twice a day. The patient should also be on Solu-Medrol 60 mg every 6 and some sort of oral antibiotic. Additional recommendations and suggestions are forthcoming. We'll need to see him as an outpatient once he is better and believes the hospital. He'll need a 6 minute walk distance a PFT and probably a sleep study. Additional recommendations and suggestions are forthcoming. He'll need to be evaluated for pickwickian syndrome as well as sleep apnea syndrome. Plan dated 02/05/2017 The patient seemed be doing a lot better. We have on bronchodilators oxygen steroids and antibiotics. He probably could be discharged tomorrow. We'll continue to follow closely. He does need follow-up in our office we can have a 6 minute walk distance and a PFT. In addition, he should have a sleep study be evaluated for pickwickian syndrome. Additional recommendations suggestions are forthcoming. Prognosis is guarded. Time with Patient: Less than 30
--- NOTE | 2017-02-05 15:30 | P.PN ---
Subjective Principal diagnosis: shortness of breath Patient is a 66-year-old male with a history of asthma, hypertension for which he does not take any medications and is only during his breathing problem, and prior heavy tobacco abuse who presented with complaints of shortness breath. In the emergency department he was found to have probable acute exacerbation of COPD. He was admitted to the general medical floor and started on steroids, antibiotics, and bronchodilators. He underwent CT PE protocol and was found to have a solitary pulmonary nodule. Pulmonary was subsequently consulted. They have recommended outpatient follow-up in their office for 6 minute walk test and pulmonary function tests. He has improved slowly with systemic steroid use. Patient seen and examined at bedside. He states his breathing is much better. He is able to ambulate to the bathroom without difficulty. He states that his wheezing is less. He is sleeping well. He is having some tremors. He denies any nausea, vomiting, or diarrhea. Objective - Vital Signs Vital signs: Vital Signs Temp 98.4 F 02/05/17 07:58 Pulse 82 02/05/17 15:13 Resp 16 02/05/17 08:00 BP 164/80 02/05/17 09:37 Pulse Ox 92 L 02/05/17 15:13 Intake & Output 02/04/17 02/05/17 02/05/17 18:59 06:59 18:59 Intake Total 1080 640 Output Total 200 200 Balance 880 440 Weight 113.398 kg Intake: Oral 1080 640 Output: Urine 200 200 Other: Voiding Method Toilet Toilet Toilet # Voids 4 2 - Exam General: non toxic, no distress, appears at stated age, obese Derm: no rashes, no lesions Head: atraumatic, normocephalic, symmetric Eyes: EOMI, no lid lag, anicteric sclera ENT: no post nasal drip, no thrush Mouth: no lip lesion, mucus membranes moist Cardiovascular: S1S2 reg, no murmur, positive posterior tibial pulse bilateral, Lungs: Wheeze bilateral bases, no rhonchi, no rales , no accessory muscle use Abdominal: soft, nontender to palpation, no guarding, no appreciable organomegaly Ext: no gross muscle atrophy, 1+ edema, no contractures Neuro: CN II-XI grossly intact, no focal neuro deficits Psych: Alert, oriented, appropriate affect - Labs CBC & Chem 7: 02/05/17 07:31 02/05/17 07:31 Labs: Abnormal Lab Results - Last 24 Hours (Table) 02/05/17 02/05/17 Range/Units 07:31 07:31 WBC 12.0 H (3.8-10.6) k/uL MCHC 30.3 L (31.0-37.0) g/dL Carbon Dioxide 31 H (22-30) mmol/L BUN 23 H (9-20) mg/dL Glucose 139 H (74-99) mg/dL Microbiology - Last 24 Hours (Table) 02/03/17 07:06 Blood Culture - Preliminary Blood No Growth after 48 hours Assessment and Plan (1) Obesity (BMI 35.0-39.9 without comorbidity) Status: Acute (2) COPD with acute exacerbation Status: Acute (3) Elevated blood pressure reading Status: Acute (4) Hyperglycemia Status: Acute (5) Acute respiratory failure with hypoxia Status: Acute (6) Pulmonary nodule Status: Acute Plan: #Acute exacerbation of probable COPD-Pulmicort twice daily, DuoNeb every 6, when necessary albuterol, Solu-Medrol decreased to 40 BID, Zithromax, outpatient follow-up with pulmonary for 6 minute walk test and pulmonary function tests. #Acute hypoxic respiratory failure- treatment as above, will perform walk to assess for home O2 #Morbid obesity- structured outpatient weight loss #Past history of hypertension- not currently on medication, patient states that his blood pressure is elevated every time he has breathing problems, follow blood pressure, when necessary hydralazine, if remains elevated, consider chronic therapy if remains elevated tomorrow. #Right pulmonary nodule- pulmonary recommendations, he can follow up in pulmonary clinic # Hx of tobacco abuse- quit one month ago, encourage patient to avoid restarting #leukocytosis-reactive secondary to steroids Surrogate decision-maker: Significant other Yoli Garcia [phone] CODE STATUS: DO NOT RESUSCITATE, no intubation DVT prophylaxis: Lovenox Discussed with: Patient, Significant other, respiratory, and nursing Anticipated discharge: 48-[address]: Home A total of 60 minutes was spent on the care of this complex patient more than 50 % of the time was spent in counseling and care coordination.
[2017-02-05 18:56] VITALS: RESP 18
[2017-02-05] MEDS: methylPREDNISolone SOD SUCCI 40 MG/ML 1 ML VIAL IV SCH (20:51)
[2017-02-06] MEDS: BUDESONIDE 1 MG/2 ML NEBU INHALATION SCH ×2 (08:15→21:05)
[2017-02-06] MEDS: FORMOTEROL FUMARATE 20 MCG/2 ML NEBU INHALATION SCH ×2 (08:15→21:05)
[2017-02-06] MEDS: IPRATROPIUM-ALBUTEROL 3 ML NEB INHALATION SCH ×4 (08:15→21:05)
[2017-02-06] MEDS: methylPREDNISolone SOD SUCCI 40 MG/ML 1 ML VIAL IV SCH ×2 (08:27→22:45)
[2017-02-06] MEDS: PANTOPRAZOLE 40 MG TABLET PO SCH (08:27)
[2017-02-06] MEDS: ENOXAPARIN 40 MG/0.4 ML SYRINGE SQ SCH (08:27)
[2017-02-06] MEDS: guaiFENesin 600 MG TABLET.ER PO SCH ×2 (08:27→22:45)
[2017-02-06] MEDS: NYSTATIN 100,000 UNIT/ML SUSP 500,000 UNIT/5 ML CUP PO SCH ×4 (08:27→22:45)
[2017-02-06] MEDS: AZITHROMYCIN 500 MG TAB PO SCH (08:28)
[2017-02-06] MEDS ORDERED: ALPRAZolam 0.5 MG TAB PO PRN (11:26)
--- NOTE | 2017-02-06 11:54 | P.PN ---
Subjective 66-year-old male who recently moved back to [place] from [facility]. The patient does not have a doctor in this area. Carries with him a diagnosis of asthma/COPD. Heavy smoker for 40 years. Recently stopped up. about 2 months ago. The patient states that his breathing was much worse in [place] than it is here. He was admitted here with a COPD exacerbation. More likely than not have COPD mostly chronic bronchitis. We don't doubt that he has significant asthma. Is feeling a bit better. We did tell him that once he is out of the hospital, we will see him in the office to do a 6 minute walk distance and a complete pulmonary function test that we can better evaluate his chronic lung disease and that him know what his severity is. Currently he is getting oxygen therapy antibiotics bronchodilators steroids, and inhalers. The patient was seen again today 02/06/2017 in follow-up on the regular medical floor. He is awake and alert in no acute distress. He did have an episode earlier this morning after taking a shower of worsening cough and congestion and became somewhat cyanotic according to the staff. He continues with a loose nonproductive cough. No chills or night sweats. He is maintaining good O2 saturations in the 90s on 2 L/m per nasal cannula. He is afebrile. Hemodynamically stable. The cultures reveal no growth to date. Objective - Vital Signs Vital signs: Vital Signs Temp 97.9 F 02/06/17 07:00 Pulse 92 02/06/17 11:46 Resp 18 02/06/17 07:00 BP 148/84 02/06/17 07:00 Pulse Ox 94 L 02/06/17 07:00 Intake & Output 02/05/17 02/06/17 02/06/17 18:59 06:59 18:59 Intake Total 600 200 Balance 600 200 Intake: Oral 600 200 Other: Voiding Method Toilet Toilet # Voids 2 1 # Bowel Movements 1 - Exam GENERAL EXAM: Obese. Alert, active, comfortable in no apparent distress. HEAD: Normocephalic. EYES: Normal reaction of pupils, equal size. NOSE: Clear with pink turbinates. THROAT: No erythema or exudates. NECK: No masses, no JVD. CHEST: No chest wall deformity. LUNGS: Equal air entry with bilateral end expiratory wheeze. Diminished. CVS: S1 and S2 normal with no audible murmurs, regular rhythm. ABDOMEN: No hepatosplenomegaly, normal bowel sounds, no guarding or rigidity. SPINE: No scoliosis or deformity SKIN: No rashes CENTRAL NERVOUS SYSTEM: No focal deficits, tone is normal in all 4 extremities. Extremities: There is trace peripheral edema. No clubbing, no cyanosis. Peripheral pulses are intact. - Labs CBC & Chem 7: 02/05/17 07:31 02/05/17 07:31 Labs: Microbiology - Last 24 Hours (Table) 02/03/17 07:06 Blood Culture - Preliminary Blood No Growth after 72 hours Assessment and Plan Plan: Impression: (1) COPD (chronic obstructive pulmonary disease) Status: Acute (2) Pickwickian syndrome Status: Acute (3) Sleep apnea syndrome Status: Acute (4) Acute respiratory failure with hypoxia Status: Acute (5) COPD with acute exacerbation Status: Acute (6) Elevated blood pressure reading Status: Acute (7) Obesity (BMI 35.0-39.9 without comorbidity) Status: Acute Plan: The patient was seen and evaluated by Dr. Negrete. He is improved today as compared to yesterday. We will continue with his current medications. We'll increase his activity as tolerated. We'll continue to follow. Upon discharge the patient will follow-up in our office in 1-2 weeks' time. He'll be evaluated with full pulmonary function testing to evaluate the severity of his COPD and make recommendations for maintenance medications.
--- NOTE | 2017-02-06 15:01 | P.PN ---
Subjective Principal diagnosis: shortness of breath Patient is a 66-year-old male with a history of asthma, hypertension for which he does not take any medications and is only during his breathing problem, and prior heavy tobacco abuse who presented with complaints of shortness breath. In the emergency department he was found to have probable acute exacerbation of COPD. He was admitted to the general medical floor and started on steroids, antibiotics, and bronchodilators. He underwent CT PE protocol and was found to have a solitary pulmonary nodule. Pulmonary was subsequently consulted. They have recommended outpatient follow-up in their office for 6 minute walk test and pulmonary function tests. He has improved slowly with systemic steroid use. His steroids were weaned and 02/05 and he developed worsening wheezing by 02/06, especially at with ambulation. Patient seen and examined at bedside. Breathing slightly worse today. Wheeze is recurrent. Feels as if he is struggling to cough things up. No chest pain, mild edema. Objective - Vital Signs Vital signs: Vital Signs Temp 97.9 F 02/06/17 07:00 Pulse 92 02/06/17 11:46 Resp 18 02/06/17 07:00 BP 148/84 02/06/17 07:00 Pulse Ox 94 L 02/06/17 07:00 Intake & Output 02/05/17 02/06/17 02/06/17 18:59 06:59 18:59 Intake Total 600 200 Balance 600 200 Intake: Oral 600 200 Other: Voiding Method Toilet Toilet # Voids 2 1 # Bowel Movements 1 - Exam General: non toxic, no distress, appears at stated age, obese Derm: no rashes, no lesions Head: atraumatic, normocephalic, symmetric Eyes: EOMI, no lid lag, anicteric sclera ENT: no post nasal drip, no thrush Mouth: no lip lesion, mucus membranes moist Cardiovascular: S1S2 reg, no murmur, positive posterior tibial pulse bilateral, Lungs: Wheeze bilateral bases, no rhonchi, no rales , no accessory muscle use Abdominal: soft, nontender to palpation, no guarding, no appreciable organomegaly Ext: no gross muscle atrophy, 1+ edema, no contractures Neuro: CN II-XI grossly intact, no focal neuro deficits Psych: Alert, oriented, appropriate affect - Labs CBC & Chem 7: 02/05/17 07:31 02/05/17 07:31 Labs: Microbiology - Last 24 Hours (Table) 02/03/17 07:06 Blood Culture - Preliminary Blood No Growth after 72 hours Assessment and Plan (1) Obesity (BMI 35.0-39.9 without comorbidity) Status: Acute (2) COPD with acute exacerbation Status: Acute (3) Elevated blood pressure reading Status: Acute (4) Hyperglycemia Status: Acute (5) Acute respiratory failure with hypoxia Status: Acute (6) Pulmonary nodule Status: Acute Plan: #Acute exacerbation of probable COPD-Pulmicort twice daily, DuoNeb every 6, when necessary albuterol, Solu-Medrol decreased to 40 BID, Zithromax, outpatient follow-up with pulmonary for 6 minute walk test and pulmonary function tests. Flutter valve, mucinex. #Acute hypoxic respiratory failure- treatment as above, O2 sat <90 with ambulation, does not have insurnance to cover home O2. #Morbid obesity- structured outpatient weight loss #Past history of hypertension- start lisinopril #Right pulmonary nodule- pulmonary recommendations, he can follow up in pulmonary clinic # Hx of tobacco abuse- quit one month ago, encourage patient to avoid restarting #leukocytosis-reactive secondary to steroids Surrogate decision-maker: Significant other Yoli Garcia [phone] CODE STATUS: DO NOT RESUSCITATE, no intubation DVT prophylaxis: Lovenox Discussed with: Patient, Significant other, respiratory, and nursing Anticipated discharge: 48-[address]: Home A total of 60 minutes was spent on the care of this complex patient more than 50 % of the time was spent in counseling and care coordination.
[2017-02-06] MEDS: LISINOPRIL 10 MG TAB PO SCH (16:44)
[2017-02-07] MEDS: IPRATROPIUM-ALBUTEROL 3 ML NEB INHALATION SCH ×2 (07:24→11:18)
[2017-02-07] MEDS: FORMOTEROL FUMARATE 20 MCG/2 ML NEBU INHALATION SCH (07:24)
[2017-02-07] MEDS: BUDESONIDE 1 MG/2 ML NEBU INHALATION SCH (07:24)
[2017-02-07] MEDS: LISINOPRIL 10 MG TAB PO SCH (08:26)
[2017-02-07] MEDS: AZITHROMYCIN 500 MG TAB PO SCH (08:26)
[2017-02-07] MEDS: PANTOPRAZOLE 40 MG TABLET PO SCH (08:26)
[2017-02-07] MEDS: NYSTATIN 100,000 UNIT/ML SUSP 500,000 UNIT/5 ML CUP PO SCH ×2 (08:26→13:34)
[2017-02-07] MEDS: ENOXAPARIN 40 MG/0.4 ML SYRINGE SQ SCH (08:27)
[2017-02-07] MEDS: methylPREDNISolone SOD SUCCI 40 MG/ML 1 ML VIAL IV SCH (08:27)
[2017-02-07] MEDS: guaiFENesin 600 MG TABLET.ER PO SCH (08:27)
[2017-02-07 08:35] VITALS: BP 158/71; TEMP 97.8
[2017-02-07] MEDS ORDERED: LORATADINE 10 MG TAB PO SCH (09:00)
--- NOTE | 2017-02-07 09:47 | P.PN ---
Subjective Progress note dated 02/05/2017 66-year-old male who recently moved back to [place] from [facility]. The patient does not have a doctor in this area. Carries with him a diagnosis of asthma/COPD. Heavy smoker for 40 years. Recently stopped up. about 2 months ago. The patient states that his breathing was much worse in [place] than it is here. He was admitted here with a COPD exacerbation. More likely than not have COPD mostly chronic bronchitis. I don't doubt that he has significant asthma. Is feeling a bit better. I did tell him that once he is out of the hospital, we will see him in the office to do a 6 minute walk distance and a complete pulmonary function test that we can better evaluate his chronic lung disease and that him know what his severity is. Currently he is getting oxygen therapy antibiotics bronchodilators steroids, and inhalers. Progress note dated 02/07/2017 66-year-old male who recently moved from [place] back to [place]. He has a history of underlying COPD/asthma. Heavy smoker for 40 years. Doing better today. The patient probably could be discharged home on a prednisone burst and taper and some oral antibiotics. I did tell him that he needs follow-up in the office for pulmonary function testing and further evaluation. The patient's likely diagnosis of COPD/chronic bronchitis and not chronic bronchial asthma. The patient is feeling better. Doing better. Denies any nausea vomiting or diarrhea. No chest pain or chest discomfort. No fever no chills. Objective - Vital Signs Vital signs: Vital Signs Temp 97.8 F 02/07/17 07:00 Pulse 84 02/07/17 07:54 Resp 18 02/07/17 07:00 BP 158/71 02/07/17 07:00 Pulse Ox 95 02/07/17 07:00 Intake & Output 02/06/17 02/07/17 02/07/17 18:59 06:59 18:59 Intake Total 1320 360 Balance 1320 360 Intake: Oral 1320 360 Other: Voiding Method Toilet Toilet # Voids 3 1 1 - Exam No acute distress, oriented 3. HEENT examination is grossly unremarkable. Mucous membranes are moist. No oral lesions. Neck supple. Full range of motion. No adenopathy or thyromegaly. Cardiovascular examination reveals regular rhythm rate. S1-S2 normal. No S3- S4 or murmur. Lungs reveal improved aeration. Breath sounds are somewhat diminished throughout though. Breath sounds are equal. A few scattered rhonchi. Slight prolongation on forced maneuver. The patient wheezes and coughs on forced. Abdomen soft bowel sounds are heard. Extremities are intact. No cyanosis clubbing or edema. Skin without rash. Neurologic examination nonfocal. - Labs CBC & Chem 7: 02/05/17 07:31 02/05/17 07:31 Labs: Microbiology - Last 24 Hours (Table) 02/03/17 07:06 Blood Culture - Preliminary Blood No Growth after 96 hours Assessment and Plan (1) COPD (chronic obstructive pulmonary disease) Status: Acute (2) Pickwickian syndrome Status: Acute (3) Sleep apnea syndrome Status: Acute (4) Acute respiratory failure with hypoxia Status: Acute (5) COPD with acute exacerbation Status: Acute (6) Elevated blood pressure reading Status: Acute (7) Obesity (BMI 35.0-39.9 without comorbidity) Status: Acute Plan: Assessment and plan dated 02/04/2017 COPD exacerbation complicated by purulent tracheobronchitis Morbid obesity Hypertension by history Chronic tobacco use Rule out sleep apnea syndrome Probable pulmonary hypertension Rule out pickwickian syndrome Plan We'll review the medications. The patient should be on DuoNeb's 4 times a day and when necessary as well as Pulmicort 1 mg and performance twice a day. The patient should also be on Solu-Medrol 60 mg every 6 and some sort of oral antibiotic. Additional recommendations and suggestions are forthcoming. We'll need to see him as an outpatient once he is better and believes the hospital. He'll need a 6 minute walk distance a PFT and probably a sleep study. Additional recommendations and suggestions are forthcoming. He'll need to be evaluated for pickwickian syndrome as well as sleep apnea syndrome. Plan dated 02/05/2017 The patient seemed be doing a lot better. We have on bronchodilators oxygen steroids and antibiotics. He probably could be discharged tomorrow. We'll continue to follow closely. He does need follow-up in our office we can have a 6 minute walk distance and a PFT. In addition, he should have a sleep study be evaluated for pickwickian syndrome. Additional recommendations suggestions are forthcoming. Prognosis is guarded. Plan dated 02/07/2017 The patient seemed be doing better. Less short of breath. He does have a history of COPD COPD exacerbation, morbid obesity, hypertension, chronic tobacco use, sleep apnea syndrome, probable pulmonary hypertension and possibly even pickwickian syndrome. The patient will need follow-up in the office. He' ll benefit from a 6 minute walk distance and a complete pulmonary function test. Will likely also benefit from a sleep study. A lot of this to be done as an outpatient once he is discharged. Patient be discharged home on prednisone and short course of antibiotics. Additional recommendations and suggestions are forthcoming. Prognosis is guarded. Time with Patient: Less than 30
[2017-02-07 13:03] VITALS: PULSE 87
--- NOTE | 2017-02-07 19:42 | P.DS ---
Providers Date of admission: 02/03/17 10:21 Expected date of discharge: 02/07/17 Attending physician: Preeti Borrego DO Consults: 02/03/17 15:13 Consult Physician Routine Consulting Provider: Derik Negrete Reason/Comments: Solitary pulmonary nodule, 12 mm, smoking hisotry Do you want consulting provider notified?: Yes Primary care physician: Stated None - Discharge Diagnosis(es) (1) Obesity (BMI 35.0-39.9 without comorbidity) Status: Acute (2) COPD with acute exacerbation Status: Acute (3) Elevated blood pressure reading Status: Acute (4) Hyperglycemia Status: Acute (5) Acute respiratory failure with hypoxia Status: Acute (6) Pulmonary nodule Status: Acute Hospital Course: Patient is a 66-year-old male with a history of asthma, hypertension for which he does not take any medications and is only during his breathing problem, and prior heavy tobacco abuse who presented with complaints of shortness breath. In the emergency department he was found to have probable acute exacerbation of COPD. He was admitted to the general medical floor and started on steroids, antibiotics, and bronchodilators. He underwent CT PE protocol and was found to have a solitary pulmonary nodule. Pulmonary was subsequently consulted. They have recommended outpatient follow-up in their office for 6 minute walk test and pulmonary function tests. He has improved slowly with systemic steroid use. His steroids were weaned and 02/05 and he developed worsening wheezing by 02/06, especially at with ambulation. His steroid dose was maintained and his breathing improved by 02/07. Blood pressure was persistently elevated during hospitalization he had a history of hypertension. He was resumed on lisinopril. He developed a reactive leukocytosis secondary to steroids. His oxygen on ambulation was between 87-88% , however he has no insurance and would prefer to not be on chronic oxygen therapy. He is aware that he needs to follow-up with Dr. Negrete for further testing and likely needs a repeat CT chest in 3 months. He was given verbal instructions on how to take his medications. He was discharged home in stable condition. He does have a high risk of readmission with no current PCP, he is establishing one this week, and no insurance. Temperature 97.8. Pulse 84 respiratory rate 18 blood pressure 158/71 oxygen 95 % on 2 L nasal cannula General: non toxic, no distress, appears at stated age Derm: no rashes, no lesions Head: atraumatic, normocephalic, symmetric Eyes: EOMI, no lid lag, anicteric sclera ENT: no post nasal drip, no thrush Mouth: no lip lesion, mucus membranes moist Cardiovascular: S1S2 reg, no murmur, positive posterior tibial pulse bilateral, Lungs: Faint wheeze bilaterally, no rhonchi, no rales , no accessory muscle use Abdominal: soft, nontender to palpation, no guarding, no appreciable organomegaly Ext: no gross muscle atrophy, no edema, no contractures Neuro: CN II-XI grossly intact, no focal neuro deficits Psych: Alert, oriented, appropriate affect Pertinent Studies: CT chest: Indeterminate soft tissue nodule right lower lobe Patient Condition at Discharge: Fair Plan - Discharge Summary New Discharge Prescriptions: New Azithromycin [Zithromax] 250 mg PO DAILY #5 tab Ipratropium Nebulized [Atrovent Nebulized] 0.5 mg INHALATION Q6HR #120 neb Lisinopril [Zestril] 10 mg PO DAILY #30 tab Loratadine [Claritin] 10 mg PO DAILY tab Nystatin 100,000 Unit/ml Susp [Mycostatin Oral Susp] 500,000 unit PO QID #1 bottle predniSONE 0 mg PO DIRECTED #60 tab Continue Montelukast [Singulair] 10 mg PO HS Albuterol Inhaler [Ventolin Hfa Inhaler] 2 puff INHALATION RT-Q6H PRN #1 inhaler PRN Reason: Shortness Of Breath Fluticasone/Salmeterol [Advair 250-50 Diskus] 1 puff INHALATION RT-BID #1 Changed Albuterol Nebulized [Ventolin Nebulized] 2.5 mg INHALATION RT-Q6H PRN #120 PRN Reason: Shortness Of Breath Discontinued diphenhydrAMINE HCL [Benadryl] 50 mg PO HS PRN PRN Reason: Allergy Symptoms Ibuprofen [Motrin] 600 mg PO BID PRN PRN Reason: Pain Albuterol Sulfate [Proair Hfa] 1 - 2 puff INHALATION RT-Q6H PRN PRN Reason: Shortness Of Breath Discharge Medication List Montelukast [Singulair] 10 mg PO HS 02/03/17 [History] Albuterol Inhaler [Ventolin Hfa Inhaler] 2 puff INHALATION RT-Q6H PRN #1 inhaler 02/07/17 [Rx] Albuterol Nebulized [Ventolin Nebulized] 2.5 mg INHALATION RT-Q6H PRN #120 [Rx] Azithromycin [Zithromax] 250 mg PO DAILY #5 tab 02/07/17 [Rx] Fluticasone/Salmeterol [Advair 250-50 Diskus] 1 puff INHALATION RT-BID #1 02/07 [Rx] Ipratropium Nebulized [Atrovent Nebulized] 0.5 mg INHALATION Q6HR #120 neb 02/07 [Rx] Lisinopril [Zestril] 10 mg PO DAILY #30 tab 02/07/17 [Rx] Loratadine [Claritin] 10 mg PO DAILY tab 02/07/17 [Rx] Nystatin 100,000 Unit/ml Susp [Mycostatin Oral Susp] 500,000 unit PO QID #1 bottle 02/07/17 [Rx] predniSONE 0 mg PO DIRECTED #60 tab 02/07/17 [Rx] Follow up Appointment(s)/Referral(s): None,Stated [Primary Care Provider] - 1-2 days Derik Negrete DO [Doctor of Osteopathic Medicine] - 1 Week Patient Instructions/Handouts: Lisinopril (By mouth), Albuterol (By breathing) , Ipratropium (By breathing), Prednisone (By mouth), Nystatin (By mouth), Azithromycin (By mouth), Fluticasone/Salmeterol (By breathing), Sleep Apnea (DC) , COPD (Chronic Obstructive Pulmonary Disease) (DC) Activity/Diet/Wound Care/Special Instructions: Activity as tolerated, regular diet If you get very short of breath you can take 3 albuterol treatments from your nebulizer in a row. You can also take an extra dose of prednisone. Discharge Disposition: HOME SELF-CARE Pending Studies Pending Results: none
== END 2017-02-07 13:45 | disposition home or self-care (01) | DRG 190 ==
LOC: EC 07:00 → 5MS5E 10:21
PROVIDERS: ADMIT Internal Medicine; ATTEND Internal Medicine
DX: J44.1 Chronic obstructive pulmonary disease with (acute) exacerbation (principal); J96.01 Acute respiratory failure with hypoxia; Z66 Do not resuscitate; T38.0X5A Adverse effect of glucocorticoids and synthetic analogues, initial encounter; J20.9 Acute bronchitis, unspecified; J44.0 Chronic obstructive pulmonary disease with (acute) lower respiratory infection; R91.1 Solitary pulmonary nodule; G47.30 Sleep apnea, unspecified; R73.9 Hyperglycemia, unspecified; I10 Essential (primary) hypertension; R00.0 Tachycardia, unspecified; E66.01 Morbid (severe) obesity due to excess calories; D72.828 Other elevated white blood cell count; R60.0 Localized edema; R23.0 Cyanosis; R25.1 Tremor, unspecified; Z88.6 Allergy status to analgesic agent; Z87.891 Personal history of nicotine dependence; Z87.01 Personal history of pneumonia (recurrent); Z87.11 Personal history of peptic ulcer disease; Z83.3 Family history of diabetes mellitus; Z79.899 Other long term (current) drug therapy; Z86.19 Personal history of other infectious and parasitic diseases; Z87.09 Personal history of other diseases of the respiratory system; Z71.3 Dietary counseling and surveillance; Z71.6 Tobacco abuse counseling; Z79.1 Long term (current) use of non-steroidal anti-inflammatories (NSAID); Z79.51 Long term (current) use of inhaled steroids; Z59.9 Problem related to housing and economic circumstances, unspecified; Z68.35 Body mass index [BMI] 35.0-35.9, adult; Z90.49 Acquired absence of other specified parts of digestive tract
CPT/HCPCS: 36415; 71020; 71275; 80048; 80053; 82550; 82553; 83735; 83880; 84100; 84484; 85025; 85027; 85610; 85730; 87040; 94640; 94667; 96374; 99285

== ENCOUNTER 2019-12-19 12:25 | Observation (INO) | payer MEDICARE, OTHER ==
--- NOTE | 2019-12-19 13:00 | ED ---
Chest Pain HPI - General Chief Complaint: Chest Pain Stated Complaint: Abnormal EKG Time Seen by Provider: 12/19/19 12:36 Source: patient, RN notes reviewed Mode of arrival: wheelchair Limitations: no limitations - History of Present Illness Initial Comments: This is a 69-year-old male with a history of chronic asthma who presents from his doctor's office with complaints of intermittent episodes of chest pain. He describes the pain as a pressure sometimes like someone standing on his chest sometimes as severe as 10/10 severity currently is pain-free he does say he's been having this for the past couple years. He purely had some EKG changes his doctor look suspicious. Nausea vomiting sweats. He does state he gets some shortness of breath with this discomfort however. No other modifying factors at this time he was a panic scheduled one time to have a stress test but he cannot tolerate a treadmill stress test. MD Complaint: chest pain - Related Data Home Medications Medication Instructions Recorded Confirmed Montelukast [Singulair] 10 mg PO HS 02/03/17 12/19/19 Fluticasone/Salmeterol [Advair 1 puff INHALATION RT-BID 12/19/19 12/19/19 500-50 Diskus] Ipratropium Nebulized [Atrovent 0.5 mg INHALATION RT-Q6H PRN 12/19/19 12/19/19 Nebulized 0.2 MG/ML] Previous Rx's Medication Instructions Recorded Albuterol Inhaler (Mhu) [Ventolin 2 puff INHALATION RT-Q6H PRN #1 02/07/17 Hfa Inhaler (Mhu)] inhaler Albuterol Nebulized [Ventolin 2.5 mg INHALATION RT-Q6H PRN #120 02/07/17 Nebulized] Allergies Allergy/AdvReac Type Severity Reaction Status Date / Time acetaminophen [From Tylenol] AdvReac Nausea & Verified 12/19/19 13:32 Vomiting Review of Systems ROS Statement: Those systems with pertinent positive or pertinent negative responses have been documented in the HPI. ROS Other: All systems not noted in ROS Statement are negative. EKG Findings - EKG Results: EKG: interpreted by KAYODE, sinus rhythm (Sinus rhythm rate 85. Interval 182 QRS duration 108 QT since QTC 360/[address]-T wave changes seen this is compared with EKG dated 12/19/19 from the doctor's office.) Past Medical History Past Medical History: Asthma, Hypertension, Pneumonia Additional Past Medical History / Comment(s): Pt states he has never been diagnosed with COPD, pt states he has had HTN and been on medication in past and then quit smoking and was taken off because he started running low pressures, occasional lower leg/pedal edema, bronchitis, stomach ulcer in past. History of Any Multi-Drug Resistant Organisms: None Reported Past Surgical History: Appendectomy Past Psychological History: No Psychological Hx Reported Smoking Status: Former smoker Past Alcohol Use History: Occasional Past Drug Use History: None Reported - Past Family History Mother Family Medical History: Dementia, Diabetes Mellitus Additional Family Medical History / Comment(s): Mother is 86yrs old and is a resident at [facility] Father Additional Family Medical History / Comment(s): Father at the age of 96yrs after a fall with rib fractures. General Exam - General Exam Comments Initial Comments: This is a well-developed nourished awake alert oriented 3 male Limitations: no limitations General appearance: alert, in no apparent distress Head exam: Present: atraumatic, normocephalic, normal inspection Eye exam: Present: normal appearance, PERRL, EOMI. Absent: scleral icterus, c onjunctival injection, periorbital swelling ENT exam: Present: normal exam, mucous membranes moist Neck exam: Present: normal inspection. Absent: tenderness, meningismus, lymphadenopathy Respiratory exam: Present: normal lung sounds bilaterally. Absent: respiratory distress, wheezes, rales, rhonchi, stridor Cardiovascular Exam: Present: regular rate, normal rhythm, normal heart sounds. Absent: systolic murmur, diastolic murmur, rubs, gallop, clicks GI/Abdominal exam: Present: soft, normal bowel sounds, other (Obese abdomen). Absent: distended, tenderness, guarding, rebound, rigid Extremities exam: Present: normal inspection, full ROM, normal capillary refill. Absent: tenderness, pedal edema, joint swelling, calf tenderness Back exam: Present: normal inspection Neurological exam: Present: alert, oriented X3, CN II-XII intact Psychiatric exam: Present: normal affect, normal mood Skin exam: Present: warm, dry, intact, normal color. Absent: rash Course Vital Signs 12/19/19 12:28 Temperature 98.1 F Pulse Rate 94 Respiratory 16 Rate Blood Pressure 179/86 O2 Sat by Pulse 93 L Oximetry Chest Pain MDM - MDM I did review the imaging and report no acute findings. The patient's case was discussed with him and his as well as with Dr. Byrne the patient be admitted with cardiology consultation. Disposition Clinical Impression: Acute coronary syndrome, Chest pain Disposition: ADMITTED IP TO THIS HOSP Condition: Fair Referrals: Cory Byrne MD [Primary Care Provider] - 1-2 days
[2019-12-19 13:58] LABS: Basophils % (A) 1 %; Eosinophils # (A) 0.3 k/uL (0-0.7); Eosinophils % (A) 4 %; HCT 45.4 % (39.0-53.0); HGB 13.9 gm/dL (13.0-17.5); Lymphocytes # (A) 1.3 k/uL (1.0-4.8); Lymphocytes % (A) 19 %; MCH 27.1 pg (25.0-35.0); MCHC 30.5 g/dL (31.0-37.0); MCV 88.6 fL (80.0-100.0); Mean Platelet Volume 8.6; Monocytes # (A) 0.4 k/uL (0-1.0); Monocytes % (A) 6 %; Neutrophils # (A) 4.4 k/uL (1.3-7.7); Neutrophils % (A) 68 %; Platelet Count 185 k/uL (150-450); RBC 5.13 m/uL (4.30-5.90); RDW 13.4 % (11.5-15.5); WBC 6.5 k/uL (3.8-10.6)
[2019-12-19 14:09] LABS: ALT 17 U/L (4-49); African American GFR (CKD) >90 (>60 ml/min/1.73 sqM); Albumin 3.9 g/dL (3.5-5.0); Anion Gap 3 mmol/L; Blood Urea Nitrogen 15 mg/dL (9-20); Calcium 8.5 mg/dL (8.4-10.2); Carbon Dioxide 30 mmol/L (22-30); Chloride 106 mmol/L (98-107); Creatine Kinase 43 U/L (55-170); Glucose 88 mg/dL (74-99); Non-African American GFR(CKD) >90 (>60 ml/min/1.73 sqM); Sodium 139 mmol/L (137-145); Total Bilirubin 0.5 mg/dL (0.2-1.3); Total Protein 6.7 g/dL (6.3-8.2)
[2019-12-19 14:12] LABS: Magnesium 1.9 mg/dL (1.6-2.3); Potassium 4.6 mmol/L (3.5-5.1)
[2019-12-19 14:13] LABS: AST 27 U/L (17-59); Alkaline Phosphatase 61 U/L (38-126)
[2019-12-19 14:22] LABS: D-Dimer 0.54 mg/L FEU (<0.60); INR 0.9 (<1.2); Partial Thromboplastin Time 25.7 sec (22.0-30.0); Prothrombin Time 9.6 sec (9.0-12.0)
--- NOTE | 2019-12-19 14:26 | XR ---
EXAMINATION TYPE: XR chest 2V DATE OF EXAM: 12/19/2019 COMPARISON: 02/03/2017 TECHNIQUE: PA and lateral views submitted. HISTORY: Abnormal EKG FINDINGS: The lungs are clear and there is no pneumothorax, pleural effusion, or focal pneumonia. Arthropathy of the AC joints. Heart size is stable. No overt failure. Prominent pulmonary artery is noted. Hyper trophic and degenerative change of the spine. IMPRESSION: 1. Borderline cardiomegaly stable..
[2019-12-19] MEDS ORDERED: NITROGLYCERIN SL TABS 0.4 MG TAB SUBLINGUAL PRN (15:39)
[2019-12-19] MEDS ORDERED: IPRATROPIUM 0.5 MG/2.5 ML NEBU INHALATION PRN (15:40)
[2019-12-19] MEDS ORDERED: ALBUTEROL NEBULIZED 2.5 MG/3 ML INHALATION PRN (15:40)
[2019-12-19] MEDS ORDERED: HEPARIN SODIUM,PORCINE 5,000 UNIT/ML 1 ML VIAL IV PRN (15:44)
[2019-12-19] MEDS ORDERED: HEPARIN SODIUM,PORCINE 5,000 UNIT/ML 1 ML VIAL IV ONE (15:44)
[2019-12-19] MEDS: SODIUM CHLORIDE 0.9% 1,000 ML IV SCH (16:16)
[2019-12-19] MEDS: HEPARIN SOD,PORK IN 0.45% NACL 25,000 UNIT in 0.45% NACL 1 250ML.BAG IV SCH (16:19)
[2019-12-19] MEDS ORDERED: METOPROLOL TARTRATE 50 MG TAB PO STA (17:40)
[2019-12-19] MEDS: SYMBICORT 160-4.5 MCG INHALER INHALATION SCH (20:06)
[2019-12-19] MEDS: METOPROLOL TARTRATE 50 MG TAB PO SCH (21:56)
[2019-12-19] MEDS: MONTELUKAST 10 MG TAB PO SCH (22:00)
[2019-12-20 06:46] LABS: Cholesterol 159 mg/dL (<200); HDL Cholesterol 29 mg/dL (40-60); LDL Cholesterol,Calculated 109 mg/dL (0-99); Triglycerides 106 mg/dL (<150)
[2019-12-20 07:20] LABS: Basophils % (A) 1 %; Eosinophils # (A) 0.3 k/uL (0-0.7); Eosinophils % (A) 5 %; HCT 44.2 % (39.0-53.0); HGB 14.1 gm/dL (13.0-17.5); Hypochromasia Moderate; Lymphocytes # (A) 1.5 k/uL (1.0-4.8); Lymphocytes % (A) 26 %; MCH 28.8 pg (25.0-35.0); MCHC 31.9 g/dL (31.0-37.0); MCV 90.2 fL (80.0-100.0); Mean Platelet Volume 9.6; Monocytes # (A) 0.4 k/uL (0-1.0); Monocytes % (A) 7 %; Neutrophils # (A) 3.5 k/uL (1.3-7.7); Neutrophils % (A) 60 %; Platelet Count 115 k/uL (150-450); RDW 13.1 % (11.5-15.5); WBC 5.9 k/uL (3.8-10.6)
[2019-12-20] MEDS: METOPROLOL TARTRATE 50 MG TAB PO SCH ×2 (07:22→21:32)
[2019-12-20] MEDS: SYMBICORT 160-4.5 MCG INHALER INHALATION SCH ×2 (07:49→20:03)
--- NOTE | 2019-12-20 08:51 | P.HPIM ---
History of Present Illness Chief Complaint: Anginal type chest This is a history and physical 69-year-old white male new to my practice yesterday who had significant episodes of chest pressure. EKG did show subtle findings and he is now admitted for appropriate acute coronary syndrome. He has had symptoms for about a month intermittently. The he states it does not stop him from doing his activities of daily living. However he describes it as a chest pressure. No radiation. No diaphoresis. Significant nausea stated during chest pressure however. No significant radiation to the neck or shoulder/arm area. After evaluation in my office, we sent him for appropriate treatment. Review of Systems Constitutional: Denies chills, Denies fever Eyes: denies blurred vision, denies pain Ears, nose, mouth and throat: Denies headache, Denies sore throat Cardiovascular: Denies chest pain, Denies shortness of breath Respiratory: Reports cough, Reports dyspnea Gastrointestinal: Denies abdominal pain, Denies diarrhea, Denies nausea, Denies vomiting Musculoskeletal: Denies myalgias Integumentary: Denies pruritus, Denies rash Neurological: Denies numbness, Denies weakness Past Medical History Past Medical History: Asthma, COPD, Hypertension Additional Past Medical History / Comment(s): Pt states he has never been diagnosed with COPD, pt states he has had HTN and been on medication in past and then quit smoking and was taken off because he started running low pressures, occasional lower leg/pedal edema, bronchitis, stomach ulcer in past. History of Any Multi-Drug Resistant Organisms: None Reported Past Surgical History: Appendectomy Past Psychological History: No Psychological Hx Reported Additional Psychological History / Comment(s): Pt resides with his significant other. They just moved here from [place] less than 2 months ago. He has a nebulizer at home. He had an appt this Wednesday to establish with a primary care physician this Wednesday. He was seeing a PCP in [place], [place]-Dr. Elizalde or Dr. Duran. He is independent. Smoking Status: Former smoker Past Alcohol Use History: Occasional Additional Past Alcohol Use History / Comment(s): Pt started smoking in 1963. He had quit for 4 yrs once and quit again about 1 month ago. He averaged a ppd but occasionally smoked more than that. Past Drug Use History: None Reported - Past Family History Mother Family Medical History: Dementia, Diabetes Mellitus Additional Family Medical History / Comment(s): Mother is 86yrs old and is a resident at [facility] Father Additional Family Medical History / Comment(s): Father at the age of 96yrs after a fall with rib fractures. Medications and Allergies Home Medications Medication Instructions Recorded Confirmed Type Montelukast [Singulair] 10 mg PO HS 02/03/17 12/19/19 History Albuterol Inhaler (Mhu) [Ventolin 2 puff INHALATION RT-Q6H PRN #1 02/07/17 12/19/19 Rx Hfa Inhaler (Mhu)] inhaler Albuterol Nebulized [Ventolin 2.5 mg INHALATION RT-Q6H PRN #120 02/07/17 12/19/19 Rx Nebulized] Fluticasone/Salmeterol [Advair 1 puff INHALATION RT-BID 12/19/19 12/19/19 History 500-50 Diskus] Ipratropium Nebulized [Atrovent 0.5 mg INHALATION RT-Q6H PRN 12/19/19 12/19/19 History Nebulized 0.2 MG/ML] Allergies Allergy/AdvReac Type Severity Reaction Status Date / Time acetaminophen [From Tylenol] AdvReac Nausea & Verified 12/19/19 13:32 Vomiting Physical Exam Vitals: Vital Signs Temp Pulse Pulse Resp BP BP Pulse Ox 12/20/19 08:00 97.6 F 60 16 164/79 98 12/20/19 04:00 98.3 F 69 16 135/72 96 12/19/19 23:40 98.5 F 75 16 148/84 97 12/19/19 19:15 98.5 F 75 16 148/84 97 12/19/19 17:19 18 12/19/19 17:15 75 16 192/91 91 L 12/19/19 16:25 98.4 F 12/19/19 16:23 75 18 164/82 98 12/19/19 12:28 98.1 F 94 16 179/86 93 L Intake and Output 12/19/19 12/20/19 12/20/19 22:59 06:59 14:59 Intake Total 300 312.71 Balance 300 312.71 Intake: Intake, IV Titration 312.71 Amount Heparin Sod,Pork in 0.45% 72.71 NaCl 25,000 unit In 0.45 % NaCl 1 250ml.bag @ 8.14 UNITS/KG/HR 10.006 mls/ hr IV .Q24H VÍCTOR Rx#: [id number] Sodium Chloride 0.9% 1, 240 000 ml @ 20 mls/hr IV . Q24H VÍCTOR Rx#:[id number] Oral 300 Other: # Voids 1 Weight 122.924 kg 121.5 kg - Constitutional General appearance: obese - EENT Eyes: no abnormal pupil - Neck Neck: no lymphadenopathy - Respiratory Respiratory: bilateral: CTA - Cardiovascular Rhythm: regular Heart sounds: normal: S1, S2 Abnormal Heart Sounds: no S3 Gallop - Gastrointestinal General gastrointestinal: soft, no tenderness - Integumentary Integumentary: no cellulitis - Neurologic Neurologic: CNII-XII intact - Psychiatric Psychiatric: A&O x's 3, appropriate affect Results CBC & Chem 7: 12/20/19 06:08 12/19/19 13:51 Labs: Abnormal Lab Results - Last 24 Hours (Table) 12/19/19 12/19/19 12/19/19 Range/Units 13:51 13:51 22:29 MCHC 30.5 L (31.0-37.0) g/dL Plt Count (150-450) k/uL APTT 36.4 H (22.0-30.0) sec Creatine Kinase 43 L (55-170) U/L LDL Cholesterol, Calc (0-99) mg/dL HDL Cholesterol (40-60) mg/dL 12/20/19 12/20/19 12/20/19 Range/Units 06:08 06:08 06:08 MCHC (31.0-37.0) g/dL Plt Count 115 L (150-450) k/uL APTT 46.0 H (22.0-30.0) sec Creatine Kinase (55-170) U/L LDL Cholesterol, Calc 109 H (0-99) mg/dL HDL Cholesterol 29 L (40-60) mg/dL Thrombosis Risk Factor Assmnt - Choose All That Apply Any of the Below Risk Factors Present?: Yes Each Factor Represents 1 point: Abnormal pulmonary function (COPD), Obesity (BMI >25) Other Risk Factors: No Thrombosis Risk Factor Assessment Total Risk Factor Score: 2 Thrombosis Risk Factor Assessment Level: Low Risk Assessment and Plan (1) Acute coronary syndrome Current Visit: Yes Status: Acute Code(s): I24.9 - ACUTE ISCHEMIC HEART DISEASE, UNSPECIFIED SNOMED Code(s): 261964104 (2) Chest pain Current Visit: Yes Status: Acute Code(s): R07.9 - CHEST PAIN, UNSPECIFIED SNOMED Code(s): 72802190 (3) Pickwickian syndrome Current Visit: No Status: Acute Code(s): E66.2 - MORBID (SEVERE) OBESITY WITH ALVEOLAR HYPOVENTILATION SNOMED Code(s): 524400479 (4) Sleep apnea syndrome Current Visit: No Status: Acute Code(s): G47.30 - SLEEP APNEA, UNSPECIFIED SNOMED Code(s): 50691140 Plan: Rule out myocardial infarction. Reconcile medications. Consult cardiology. Stress testing versus possible cardiac catheter position given his symptoms. See orders otherwise. Prognosis is guarded
[2019-12-20] MEDS ORDERED: ASPIRIN 325 MG TAB PO SCH (09:00)
[2019-12-20] MEDS ORDERED: REGADENOSON 0.4 MG/5 ML SYRINGE IV ONE ×2 (09:25→13:55)
[2019-12-20] MEDS ORDERED: CAFFEINE CITRATE 60 MG/3 ML VIAL IV PRN (09:25)
[2019-12-20] MEDS ORDERED: AMINOPHYLLINE 500 MG/20 ML VIAL IV PRN (09:25)
--- NOTE | 2019-12-20 10:18 | ECHOF ---
Referral Reason:Chest pain MEASUREMENTS -------- HEIGHT: 170.2 cm WEIGHT: 122.9 kg BP: 164/82 IVSd: 1.3 cm (0.6 - 1.1) LVIDd: 5.3 cm (3.9 - 5.3) LVPWd: 2.0 cm (0.6 - 1.1) IVSs: 1.2 cm LVIDs: 4.6 cm LVPWs: 2.1 cm LAESV Index (A-L): 14.33 ml/m Ao Diam: 3.3 cm (2.0 - 3.7) AV Cusp: 2.2 cm (1.5 - 2.6) MV EXCURSION: 15.662 mm (> 18.000) MV EF SLOPE: 72 mm/s (70 - 150) EPSS: 1.4 cm MV E Shiv: 0.57 m/s MV A Shiv: 0.94 m/s MV E/A Ratio: 0.61 RAP: 5.00 mmHg RVSP: 13.49 mmHg FINDINGS -------- Sinus rhythm. This was a technically difficult study with suboptimal views. There is moderate concentric left ventricular hypertrophy. There is moderate global hypokinesis of LV . Overall left ventricular systolic function is moderately impaired with, an EF between 35 - 40 %. Mitral Doppler inflow pattern suggests diastolic filling abnormality 11.61. The RV was not well visualized. Normal LA size by volume 22+/-6 ml/m2. The right atrium was not well visualized. 1.5mg of Definity was utilized for enhancement of images The aortic valve was not well visualized. There is no evidence of aortic regurgitation. There is no evidence of aortic stenosis. The mitral valve was not well visualized. No mitral regurgitation. Mild tricuspid regurgitation present. There is no evidence of pulmonary hypertension. The right v entricular systolic pressure, as measured by Doppler, is 13.49mmHg. The pulmonic valve was not well visualized. There is no pulmonic regurgitation present. The aortic root size is normal. Normal inferior vena cava with normal inspiratory collapse consistent with estimated right atrial pre ssure of 5 mmHg. There is no pericardial effusion. CONCLUSIONS -------- 1. This was a technically difficult study with suboptimal views. 2. There is moderate concentric left ventricular hypertrophy. 3. There is moderate global hypokinesis of LV . 4. Overall left ventricular systolic function is moderately impaired with, an EF between 35 - 40 %. 5. Mitral Doppler inflow pattern suggest diastolic filling abnormality 11.61. 6. Normal LA size by volume 22+/-6 ml/m2. 7. 1.5mg of Definity was utilized for enhancement of images 8. The aortic valve was not well visualized. 9. The mitral valve was not well visualized. 10. Mild tricuspid regurgitation present. 11. There is no pulmonic regurgitation present. 12. There is no pericardial effusion. SLEEVE SEPARATOR: Alexandra Franks RDCS
--- NOTE | 2019-12-20 12:25 | P.CRDCN ---
History of Present Illness History of present illness: HISTORY OF PRESENTING ILLNESS This is a pleasant 69-year-old male past medical history significant for hypertension, asthma and chronic nicotine dependence. He denies prior history of coronary artery disease and does not follow with a special effects person. We have been asked to see in consultation for chest pain. He states after a long hiatus of following with a regular primary care physician he established yesterday in the office with Dr. Byrne. During his physical examination he complained of a pressure sensation in his chest that has been going off and on intermittently for the previous one year. He states that it feels extremity is sitting on his chest at times and then it subsides on its own. It is not exacerbated by activity or exertion. He does not think it is exacerbated by oral intake. There is no radiation to the arm, back, neck or jaw. He has no associated symptoms of dizziness, shortness of breath, palpitations, nausea, vomiting or diaphoresis. He does have dyspnea at times not associated with activity. He states he has never been diagnosed with COPD however he knows he has asthma and he does smoke 5-6 cigarettes daily. DIAGNOSTICS EKG reveals sinus mechanism. Chest xray negative for an acute cardiopulmonary process. Laboratory reviewed, WBC 5.9, hemoglobin 14.1, platelets 115, d-dimer 0.54, sodium 139, potassium 4.6, creatinine 0.78, magnesium 1.9, cardiac enzymes negative 2, NT proBNP 337, LDL 109, HDL 29. He takes no daily cardiac medications. He was started on metoprolol 50 mg twice a day in the emergency department. REVIEW OF SYSTEMS At the time of my exam: CONSTITUTIONAL: Denies fever or chills. CARDIOVASCULAR: Denies chest pain, shortness of breath, orthopnea, PND or palpitations. RESPIRATORY: Denies cough. GASTROINTESTINAL: Denies abdominal pain, diarrhea, constipation, nausea or vomiting. MUSCULOSKELETAL: Denies myalgias. NEUROLOGIC: Denies numbness, tingling or weakness. ENDOCRINE: Denies fatigue, weight change, polydipsia or polyurina. GENITOURINARY: Denies burning, hematuria or urgency with micturation. HEMATOLOGIC: Denies history of anemia or bleeding. PHYSICAL EXAMINATION Blood pressure 164/79 heart rate 60 afebrile and maintaining oxygen saturation on room air. CONSTITUTIONAL: No apparent distress. HEENT: Head is normocephalic. Pupils are equal, round. Sclerae anicteric. Mucous membranes of the mouth are moist. No JVD. No carotid bruit. CHEST EXAMINATION: Lungs are clear to auscultation. No chest wall tenderness is noted on palpation or with deep breathing. HEART EXAMINATION: Regular rate and rhythm. S1, S2 heard. Systolic ejection murmur at the left sternal border, no gallops or rub. ABDOMEN: Soft, nontender. Positive bowel sounds. EXTREMITIES: 2+ peripheral pulses, 1+ bilateral lower extremity pitting edema and no calf tenderness. NEUROLOGIC EXAMINATION: Patient is awake, alert and oriented x3. ASSESSMENT Chest pain, atypical for angina. An acute event has been ruled out. Hypertension, not currently taking anti-hypertensives Dyslipidemia Asthma Chronic nicotine dependence PLAN An acute coronary event has been ruled out. Underlying coronary artery disease is likely given his history and comorbid conditions. We recommend proceeding with a Lexiscan stress test to assess for reversibility. Obtain 2-D echocardiogram and Doppler study to assess cardiac structure and function. Recommend complete tobacco cessation. Further recommendations to follow based upon clinical course. Thank you kindly for this consultation. Nurse Practitioner note has been reviewed, I agree with a documented findings and plan of care. Patient was seen and examined. Past Medical History Past Medical History: Asthma, Hypertension Additional Past Medical History / Comment(s): Pt states he has never been diagnosed with COPD, pt states he has had HTN and been on medication in past and then quit smoking and was taken off because he started running low pressures, occasional lower leg/pedal edema, bronchitis, stomach ulcer in past. History of Any Multi-Drug Resistant Organisms: None Reported Past Surgical History: Appendectomy Past Psychological History: No Psychological Hx Reported Additional Psychological History / Comment(s): Pt resides with his significant other. They just moved here from [place] less than 2 months ago. He has a nebulizer at home. He had an appt this Wednesday to establish with a primary care physician this Wednesday. He was seeing a PCP in [place], [place]-Dr. Elizalde or Dr. Duran. He is independent. Smoking Status: Former smoker Past Alcohol Use History: Occasional Additional Past Alcohol Use History / Comment(s): Pt started smoking in 1963. He had quit for 4 yrs once and quit again about 1 month ago. He averaged a ppd but occasionally smoked more than that. Past Drug Use History: None Reported - Past Family History Mother Family Medical History: Dementia, Diabetes Mellitus Additional Family Medical History / Comment(s): Mother is 86yrs old and is a resident at [facility] Father Additional Family Medical History / Comment(s): Father at the age of 96yrs after a fall with rib fractures. Medications and Allergies Home Medications Medication Instructions Recorded Confirmed Type Montelukast [Singulair] 10 mg PO HS 02/03/17 12/19/19 History Albuterol Inhaler (Mhu) [Ventolin 2 puff INHALATION RT-Q6H PRN #1 02/07/17 12/19/19 Rx Hfa Inhaler (Mhu)] inhaler Albuterol Nebulized [Ventolin 2.5 mg INHALATION RT-Q6H PRN #120 02/07/17 12/19/19 Rx Nebulized] Fluticasone/Salmeterol [Advair 1 puff INHALATION RT-BID 12/19/19 12/19/19 History 500-50 Diskus] Ipratropium Nebulized [Atrovent 0.5 mg INHALATION RT-Q6H PRN 12/19/19 12/19/19 History Nebulized 0.2 MG/ML] Allergies Allergy/AdvReac Type Severity Reaction Status Date / Time acetaminophen [From Tylenol] AdvReac Nausea & Verified 12/19/19 13:32 Vomiting Physical Exam Vitals: Vital Signs Temp Pulse Pulse Resp BP BP Pulse Ox 12/20/19 04:00 98.3 F 69 16 135/72 96 12/19/19 23:40 98.5 F 75 16 148/84 97 12/19/19 19:15 98.5 F 75 16 148/84 97 12/19/19 17:19 18 12/19/19 17:15 75 16 192/91 91 L 12/19/19 16:25 98.4 F 12/19/19 16:23 75 18 164/82 98 12/19/19 12:28 98.1 F 94 16 179/86 93 L Intake and Output 12/19/19 12/20/19 12/20/19 22:59 06:59 14:59 Intake Total 300 312.71 Balance 300 312.71 Intake: Intake, IV Titration 312.71 Amount Heparin Sod,Pork in 0.45% 72.71 NaCl 25,000 unit In 0.45 % NaCl 1 250ml.bag @ 8.14 UNITS/KG/HR 10.006 mls/ hr IV .Q24H VÍCTOR Rx#: [id number] Sodium Chloride 0.9% 1, 240 000 ml @ 20 mls/hr IV . Q24H VÍCTOR Rx#:[id number] Oral 300 Other: # Voids 1 Weight 122.924 kg 121.5 kg Results 12/20/19 06:08 12/19/19 13:51 Cardiac Enzymes 12/19/19 12/19/19 12/19/19 Range/Units 13:51 13:51 17:15 AST 27 (17-59) U/L Troponin I <0.012 <0.012 (0.000-0.034) ng/mL 12/19/19 Range/Units 19:48 AST (17-59) U/L Troponin I <0.012 (0.000-0.034) ng/mL Coagulation 12/19/19 12/19/19 12/20/19 Range/Units 13:51 22:29 06:08 PT 9.6 (9.0-12.0) sec APTT 25.7 36.4 H 46.0 H (22.0-30.0) sec Lipids 12/20/19 Range/Units 06:08 Triglycerides 106 (<150) mg/dL Cholesterol 159 (<200) mg/dL HDL Cholesterol 29 L (40-60) mg/dL CBC 12/19/19 12/20/19 Range/Units 13:51 06:08 WBC 6.5 5.9 (3.8-10.6) k/uL RBC 5.13 4.90 (4.30-5.90) m/uL Hgb 13.9 14.1 (13.0-17.5) gm/dL Hct 45.4 44.2 (39.0-53.0) % Plt Count 185 115 L (150-450) k/uL Comprehensive Metabolic Panel 12/19/19 Range/Units 13:51 Sodium 139 (137-145) mmol/L Potassium 4.6 (3.5-5.1) mmol/L Chloride 106 (98-107) mmol/L Carbon Dioxide 30 (22-30) mmol/L BUN 15 (9-20) mg/dL Creatinine 0.78 (0.66-1.25) mg/dL Glucose 88 (74-99) mg/dL Calcium 8.5 (8.4-10.2) mg/dL AST 27 (17-59) U/L ALT 17 (4-49) U/L Alkaline Phosphatase 61 (38-126) U/L Total Protein 6.7 (6.3-8.2) g/dL Albumin 3.9 (3.5-5.0) g/dL Current Medications Generic Name Dose Route Start Last Admin Trade Name Freq PRN Reason Stop Dose Admin Albuterol Sulfate 2.5 mg 12/19/19 15:40 Ventolin Nebulized INHALATION RT-Q6H PRN Shortness Of Breath Aspirin 325 mg 12/20/19 09:00 12/20/19 07:21 Aspirin PO 325 mg DAILY VÍCTOR Administration Budesonide/Formoterol Fumarate 2 puff 12/19/19 20:00 12/20/19 07:49 Symbicort 160-4.5 Mcg Inhaler INHALATION 2 puff RT-BID VÍCTOR Administration Heparin Sodium (Porcine) 0 unit 12/19/19 15:44 12/19/19 23:35 Heparin IV 3,050 unit PER PROTOCOL PRN Administration Low PTT Protocol Sodium Chloride 1,000 mls @ 20 mls/hr 12/19/19 15:45 12/19/19 16:16 Saline 0.9% IV 20 mls/hr .Q24H VÍCTOR Administration Heparin Sodium/Sodium Chloride 250 mls @ 10.006 mls/hr 12/19/19 15:45 12/19/19 23:35 25,000 unit/ Sodium Chloride IV 10.14 units/kg/hr .Q24H VÍCTOR 12.464 mls/hr Titration Protocol 8.14 UNITS/KG/HR Ipratropium [place] 0.5 mg 12/19/19 15:40 Atrovent Nebulized INHALATION RT-Q6H PRN Shortness Of Breath Metoprolol Tartrate 50 mg 12/19/19 21:00 12/20/19 07:22 Lopressor PO 50 mg BID VÍCTOR Administration Montelukast Sodium 10 mg 12/19/19 21:00 12/19/19 22:00 Singulair PO 10 mg HS VÍCTOR Administration Nitroglycerin 0.4 mg 12/19/19 15:39 Nitrostat SUBLINGUAL Q5M PRN Chest Pain Intake and Output 12/19/19 12/20/19 12/20/19 22:59 06:59 14:59 Intake Total 300 312.71 Balance 300 312.71 Intake: Intake, IV Titration 312.71 Amount Heparin Sod,Pork in 0.45% 72.71 NaCl 25,000 unit In 0.45 % NaCl 1 250ml.bag @ 8.14 UNITS/KG/HR 10.006 mls/ hr IV .Q24H VÍCTOR Rx#: [id number] Sodium Chloride 0.9% 1, 240 000 ml @ 20 mls/hr IV . Q24H VÍCTOR Rx#:[id number] Oral 300 Other: # Voids 1 Weight 122.924 kg 121.5 kg 12/20/19 06:08 12/19/19 13:51
[2019-12-20] MEDS: SODIUM CHLORIDE 0.9% 1,000 ML IV SCH (20:08)
[2019-12-20] MEDS: HEPARIN SOD,PORK IN 0.45% NACL 25,000 UNIT in 0.45% NACL 1 250ML.BAG IV SCH (20:08)
[2019-12-20] MEDS ORDERED: METOPROLOL TARTRATE 50 MG TAB PO SCH (21:00)
[2019-12-20] MEDS ORDERED: ATORVASTATIN 40 MG TAB PO SCH (21:00)
[2019-12-20] MEDS: MONTELUKAST 10 MG TAB PO SCH (21:28)
[2019-12-20] MEDS: METOPROLOL TARTRATE 25 MG TAB PO SCH (21:29)
[2019-12-20] MEDS ORDERED: ATORVASTATIN 40 MG TAB ONE (22:48)
--- NOTE | 2019-12-21 01:07 | NM ---
EXAMINATION TYPE: NM stress lexiscan cardiolite DATE OF EXAM: 12/20/2019 COMPARISON: NONE HISTORY: TECHNIQUE: After the intravenous administration of 10.7 mCi Tc 99m Sestamibi - Cardiolite resting SP ECT images acquired 45 minutes post injection. The patient received 0.4mg Lexiscan, 26.3 mCi Tc 99m Sestamibi - Stress images obtained [address] injection FINDINGS: The left ventricular ejection fraction is 41%. The end-diastolic volume of left ventricle is 180 mL a nd end-systolic volume of 107 mL. Left ventricle is enlarged. There is decreased perfusion of the inf erior wall on the stress images and no improvement on the resting images. The wall motion exam shows no evidence of dyskinesis. The inferior wall is akinetic or hypokinetic. IMPRESSION: Dilated left ventricle with ejection fraction 41%. No reversible ischemia. There is evidence of infar ct inferior wall.
[2019-12-21] MEDS: FUROSEMIDE 40 MG TAB PO SCH ×2 (04:48→09:36)
[2019-12-21] MEDS: LOSARTAN 25 MG TAB PO SCH ×2 (04:49→09:35)
--- NOTE | 2019-12-21 08:15 | P.DS ---
Providers Date of admission: 12/19/19 15:39 Attending physician: Cory Byrne Consults: 12/19/19 15:39 Consult Physician Urgent Consulting Provider: Christopher Ortega Consult Reason/Comments: Chest pain Do you want consulting provider notified?: Yes Primary care physician: Cory Byrne - Discharge Diagnosis(es) (1) Acute coronary syndrome Current Visit: Yes Status: Acute (2) Chest pain Current Visit: Yes Status: Acute (3) Pickwickian syndrome Current Visit: No Status: Acute (4) Sleep apnea syndrome Current Visit: No Status: Acute Hospital Course: CBC summary 69-year-old white male essentially admitted for angina. The patient had Lexiscan stress test which did not prove any type of reversible ischemia of the inferior wall changes are noted. He will placed on appropriate card a protective medications and will be discharged once cleared by cardiology. Patient Condition at Discharge: Fair Plan - Discharge Summary New Discharge Prescriptions: New Aspirin 81 mg PO DAILY tab Losartan [Cozaar] 25 mg PO DAILY #30 tab Furosemide [Lasix] 40 mg PO DAILY #30 tab Atorvastatin [Lipitor] 40 mg PO HS #30 tab Metoprolol Tartrate [Lopressor] 25 mg PO BID #60 tab Nitroglycerin Sl Tabs [Nitrostat] 0.4 mg SUBLINGUAL Q5M PRN #50 tab PRN Reason: Chest Pain Continue Montelukast [Singulair] 10 mg PO HS Albuterol Inhaler (Mhu) [Ventolin Hfa Inhaler (Mhu)] 2 puff INHALATION RT-Q6H PRN #1 inhaler PRN Reason: Shortness Of Breath Albuterol Nebulized [Ventolin Nebulized] 2.5 mg INHALATION RT-Q6H PRN #120 PRN Reason: Shortness Of Breath Fluticasone/Salmeterol [Advair 500-50 Diskus] 1 puff INHALATION RT-BID Ipratropium Nebulized [Atrovent Nebulized 0.2 MG/ML] 0.5 mg INHALATION RT-Q6H PRN PRN Reason: Shortness Of Breath Discharge Medication List Montelukast [Singulair] 10 mg PO HS 02/03/17 [History] Albuterol Inhaler (Mhu) [Ventolin Hfa Inhaler (Mhu)] 2 puff INHALATION RT-Q6H PRN #1 inhaler 02/07/17 [Rx] Albuterol Nebulized [Ventolin Nebulized] 2.5 mg INHALATION RT-Q6H PRN #120 02/07/17 [Rx] Fluticasone/Salmeterol [Advair 500-50 Diskus] 1 puff INHALATION RT-BID 12/19/19 [History] Ipratropium Nebulized [Atrovent Nebulized 0.2 MG/ML] 0.5 mg INHALATION RT-Q6H PRN 12/19/19 [History] Aspirin 81 mg PO DAILY tab 12/21/19 [Rx] Atorvastatin [Lipitor] 40 mg PO HS #30 tab 12/21/19 [Rx] Furosemide [Lasix] 40 mg PO DAILY #30 tab 12/21/19 [Rx] Losartan [Cozaar] 25 mg PO DAILY #30 tab 12/21/19 [Rx] Metoprolol Tartrate [Lopressor] 25 mg PO BID #60 tab 12/21/19 [Rx] Nitroglycerin Sl Tabs [Nitrostat] 0.4 mg SUBLINGUAL Q5M PRN #50 tab 12/21/19 [Rx] Follow up Appointment(s)/Referral(s): Cory Byrne MD [Primary Care Provider] - 3 Days Discharge Disposition: HOME SELF-CARE
[2019-12-21] MEDS: SYMBICORT 160-4.5 MCG INHALER INHALATION SCH (08:23)
[2019-12-21] MEDS ORDERED: ASPIRIN 325 MG TAB PO SCH (09:00)
[2019-12-21] MEDS: METOPROLOL TARTRATE 25 MG TAB PO SCH (09:35)
--- NOTE | 2019-12-21 10:25 | P.PN ---
Subjective HISTORY OF PRESENTING ILLNESS This is a pleasant 69-year-old male past medical history significant for hypertension, asthma and chronic nicotine dependence. 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 He is seen and examined sitting up in the chair in no acute distress. He denies symptoms of chest pain, shortness of breath, dizziness or palpitations. Lexiscan stress test yesterday revealed dilated LV with EF of 41, no reversible ischemia and evidence of inferior wall hypokinesia. Echocardiogram reveals impaired LV systolic function with ejection fraction 35-40%, global hypokinesia of the LV, moderate concentric LVH and mild tricuspid regurgitation. Blood pressure 153/83 heart rate 59 afebrile maintaining oxygen saturation on room air. Aspirin, atorvastatin, losartan and Lasix were initiated yesterday secondary to cardiomyopathy. PHYSICAL EXAMINATION CONSTITUTIONAL: No apparent distress. HEENT: Head is normocephalic. Pupils are equal, round. Sclerae anicteric. Mucous membranes of the mouth are moist. No JVD. No carotid bruit. CHEST EXAMINATION: Lungs are clear to auscultation. No chest wall tenderness is noted on palpation or with deep breathing. HEART EXAMINATION: Regular rate and rhythm. S1, S2 heard. Systolic ejection murmur at the left sternal border, no gallops or rub. EXTREMITIES: 2+ peripheral pulses, 1+ bilateral lower extremity pitting edema and no calf tenderness. ASSESSMENT Chest pain, atypical for angina. An acute event has been ruled out. Hypertension, not currently taking anti-hypertensives Dyslipidemia Asthma Chronic nicotine dependence PLAN Add Aldactone 25 mg daily to his current regimen. Recommend BMP and magnesium levels to be drawn in one week. Follow-up in the office with Dr. Johnson in 2 weeks. Nurse Practitioner note has been reviewed, I agree with a documented findings and plan of care. Patient was seen and examined. Objective - Vital Signs Vital signs: Vital Signs Temp 97.9 F 12/21/19 08:00 Pulse 59 L 12/21/19 08:00 Resp 18 12/21/19 08:00 BP 153/83 12/21/19 08:00 Pulse Ox 96 12/21/19 08:00 Intake & Output 12/20/19 12/21/19 12/21/19 18:59 06:59 18:59 Weight 121.5 kg 122 kg Other: Voiding Method Toilet # Voids 1 - Labs CBC & Chem 7: 12/20/19 06:08 12/19/19 13:51
[2019-12-21] MEDS ORDERED: SPIRONOLACTONE 25 MG TAB PO SCH (10:30)
--- NOTE | 2019-12-21 13:00 | EST ---
EXERCISE STRESS AGE: 69 SEX: M HT: 67" WT: 270 PROTOCOL: Lexiscan Cardiolite Stress Test HEART RATE REST: 56 BLOOD PRESSURE REST: 147/77 MAXIMUM HEART RATE ACHIEVED: 82 MAXIMUM BLOOD PRESSURE: 187/75 85% MPHR: 130. 100% MPHR: 153 INDICATIONS: Chest pressure. CLINICAL INFORMATION: Baseline rhythm is sinus mechanism, rate of 56, borderline right axis deviation, poor R- wave progression, baseline blood pressure 147/77 mmHg. Patient received injection of Lexiscan. Electrocardiograph monitoring revealed no evidence of diagnostic ischemic ST deviation. Cardiolite was injected per protocol. CONCLUSION: 1. Nondiagnostic electrocardiograph stress testing. 2. Nuclear images will be reported separately. MMODL / IJN: [id number] /
[2019-12-22 08:46] VITALS: BP 153/83; PULSE 59; RESP 18; TEMP 97.9
== END 2019-12-21 11:05 | disposition home or self-care (01) ==
LOC: EC 12:25 → 1SOBS 15:39
PROVIDERS: ADMIT Family Medicine; ATTEND Family Medicine
DX: I24.9 Acute ischemic heart disease, unspecified (principal); R07.89 Other chest pain; R11.2 Nausea with vomiting, unspecified; R61 Generalized hyperhidrosis; E66.2 Morbid (severe) obesity with alveolar hypoventilation; Z68.41 Body mass index [BMI] 40.0-44.9, adult; I10 Essential (primary) hypertension; I42.9 Cardiomyopathy, unspecified; J45.909 Unspecified asthma, uncomplicated; E78.5 Hyperlipidemia, unspecified; Z87.11 Personal history of peptic ulcer disease; Z87.09 Personal history of other diseases of the respiratory system; F17.210 Nicotine dependence, cigarettes, uncomplicated; Z79.899 Other long term (current) drug therapy; Z88.8 Allergy status to other drugs, medicaments and biological substances; Z90.49 Acquired absence of other specified parts of digestive tract; Z87.01 Personal history of pneumonia (recurrent); Z83.3 Family history of diabetes mellitus; Z81.8 Family history of other mental and behavioral disorders; Z20.828 Contact with and (suspected) exposure to other viral communicable diseases
CPT/HCPCS: 93005 ×2; 96366 ×2; 96376 ×2; 96365; 99285; 36415; 94640 ×4; 93017; 85379; 83880; 80061; 80053; 82550; 83690; 83735; 84484; 85025 ×2; 85610; 85730 ×2; 71046; 78452; G0378 ×3; C8929; U0003; A9500; J1644 ×2; J2785; Q9950; 93306

== ENCOUNTER 2021-02-05 14:45 | Inpatient (IN) | payer MEDICARE, OTHER ==
[2021-02-05] MEDS ORDERED: SODIUM CHLORIDE 0.9% 500 ML 500 ML IV STA (15:23)
--- NOTE | 2021-02-05 15:27 | ED ---
Weakness HPI - General Chief complaint: Weakness Stated complaint: weakness Source: patient, family, EMS, RN notes reviewed, old records reviewed Mode of arrival: EMS - History of Present Illness Initial comments: 70-year-old white male, alert and oriented 4, presents to the emergency room with complaints of dizziness upon standing or changing positions. Patient states that started at 5:00 this morning when he got up. He does state that if he sits for a little while and will resolve and then he came get up and move. He denies any chest pain or shortness of breath. No nausea vomiting diarrhea or fevers. Does have COPD and does continue to smoke occasionally. He states that the room is not spinning and he actually feels like if he doesn't sit down and he will pass out. He does have a wet nonproductive cough. His states that he has been painting a vehicle and yesterday thought the paint smell was very strong and warned him to increase ventilation. -: days(s) (1) Time: 05:00 Severity scale (1-10): 0 - Related Data Home Medications Medication Instructions Recorded Confirmed Montelukast [Singulair] 10 mg PO HS 02/03/17 02/05/21 Fluticasone/Salmeterol [Advair 1 puff INHALATION RT-BID 12/19/19 02/05/21 500-50 Diskus] Albuterol Inhaler [Ventolin Hfa 2 puff INHALATION RT-QID PRN 02/05/21 02/05/21 Inhaler] Ibuprofen [Advil] 200 mg PO Q8HR PRN 02/05/21 02/05/21 Losartan Potassium [Cozaar] 50 mg PO DAILY 02/05/21 02/05/21 Metoprolol Tartrate [Lopressor] 25 mg PO DAILY 02/05/21 02/05/21 Previous Rx's Medication Instructions Recorded Aspirin 81 mg PO DAILY tab 12/21/19 Atorvastatin [Lipitor] 40 mg PO HS #30 tab 12/21/19 Nitroglycerin Sl Tabs [Nitrostat] 0.4 mg SUBLINGUAL Q5M PRN #50 tab 12/21/19 Spironolactone [Aldactone] 25 mg PO DAILY #90 tab 12/21/19 Allergies Allergy/AdvReac Type Severity Reaction Status Date / Time acetaminophen [From Tylenol] AdvReac Nausea & Verified 02/05/21 16:07 Vomiting Review of Systems ROS Statement: Those systems with pertinent positive or pertinent negative responses have been documented in the HPI. ROS Other: All systems not noted in ROS Statement are negative. Past Medical History Past Medical History: Asthma, Hypertension, Myocardial Infarction ([place]) Additional Past Medical History / Comment(s): Pt states he has never been diagnosed with COPD, pt states he has had HTN and been on medication in past and then quit smoking and was taken off because he started running low pressures, oc casional lower leg/pedal edema, bronchitis, stomach ulcer in past. History of Any Multi-Drug Resistant Organisms: None Reported Past Surgical History: Appendectomy Past Psychological History: No Psychological Hx Reported Smoking Status: Current every day smoker Past Alcohol Use History: Occasional Past Drug Use History: None Reported - Past Family History Mother Family Medical History: Dementia, Diabetes Mellitus Additional Family Medical History / Comment(s): Mother is 86yrs old and is a resident at [facility] Father Additional Family Medical History / Comment(s): Father at the age of 96yrs after a fall with rib fractures. General Exam General appearance: alert, in no apparent distress Head exam: Present: atraumatic, normocephalic, normal inspection Eye exam: Present: normal appearance, PERRL, EOMI. Absent: scleral icterus, conjunctival injection, periorbital swelling ENT exam: Present: normal exam, normal oropharynx, mucous membranes moist Neck exam: Present: normal inspection, full ROM. Absent: tenderness, meningismus, lymphadenopathy Respiratory exam: Present: normal lung sounds bilaterally, other (Rhonchi clears with cough). Absent: respiratory distress, wheezes, rales, rhonchi, stridor, chest wall tenderness, accessory muscle use Cardiovascular Exam: Absent: tachycardia, JVD GI/Abdominal exam: Present: soft. Absent: tenderness Extremities exam: Present: normal capillary refill. Absent: tenderness, pedal edema, joint swelling, calf tenderness Back exam: Present: normal inspection. Absent: tenderness, CVA tenderness (R), CVA tenderness (L), muscle spasm, paraspinal tenderness, vertebral tenderness, rash noted Neurological exam: Present: alert, oriented X3, CN II-XII intact Psychiatric exam: Present: normal affect, normal mood Skin exam: Present: warm, dry, intact, normal color. Absent: rash, cyanosis, diaphoretic, petechiae, pallor Course Vital Signs 02/05/21 02/05/21 02/05/21 14:49 15:23 17:51 Temperature 99.4 F 100.9 F H Pulse Rate 107 H 96 Respiratory 18 20 20 Rate Blood Pressure 150/74 121/72 O2 Sat by Pulse 93 L 94 L Oximetry - Reevaluation(s) Reevaluation #1: 02/05/21 16:37 Chest x-ray shows possible pneumonitis versus infiltrate. does state that the patient was painting a vehicle with a very strong smelling chemical paint yesterday. Time: 16:37 EKG Findings - EKG Results: EKG: sinus rhythm EKG shows: tachycardia (Ventricular rate 108, DE interval 0.174, QRS 0.94, QTC 0.439) Medical Decision Making - Medical Decision Making His WBC count is 11.7 and his d-dimer is 1.08. Troponin is negative at 0.012 and his EKG shows sinus tachycardia. Chest x-ray shows bibasilar airspace disease left greater than the right, possibly infectious versus aspiration pneumonitis. Patient developed a fever in the emergency room of 100.9 and was found by EMS with an oxygen saturation of 88%. Patient was treated for pneumonia with Rocephin and Zithromax, and given Solu-Medrol. Case discussed with Dr. Krause. Spoke with Dr. Byrne who agreed to admit patient to the hospital and consult pulmonology. Patient and family are agreeable to this plan of care. - Lab Data Result diagrams: 02/05/21 15:41 02/05/21 15:41 Lab Results 02/05/21 02/05/21 02/05/21 Range/Units 15:41 15:41 15:41 WBC 11.7 H (3.8-10.6) k/uL RBC 5.02 (4.30-5.90) m/uL Hgb 14.1 (13.0-17.5) gm/dL Hct 43.6 (39.0-53.0) % MCV 86.9 (80.0-100.0) fL MCH 28.2 (25.0-35.0) pg MCHC 32.4 (31.0-37.0) g/dL RDW 14.3 (11.5-15.5) % Plt Count 188 (150-450) k/uL MPV 9.0 Neutrophils % 88 % Lymphocytes % 5 % Monocytes % 5 % Eosinophils % 1 % Basophils % 0 % Neutrophils # 10.3 H (1.3-7.7) k/uL Lymphocytes # 0.6 L (1.0-4.8) k/uL Monocytes # 0.6 (0-1.0) k/uL Eosinophils # 0.1 (0-0.7) k/uL Basophils # 0.0 (0-0.2) k/uL PT 10.4 (9.0-12.0) sec INR 1.0 (<1.2) APTT 25.0 (22.0-30.0) sec D-Dimer 1.08 H (<0.60) mg/L FEU Sodium (137-145) mmol/L Potassium (3.5-5.1) mmol/L Chloride (98-107) mmol/L Carbon Dioxide (22-30) mmol/L Anion Gap mmol/L BUN (9-20) mg/dL Creatinine (0.66-1.25) mg/dL Est GFR (CKD-EPI)AfAm (>60 ml/min/1.73 sqM) Est GFR (CKD-EPI)NonAf (>60 ml/min/1.73 sqM) Glucose (74-99) mg/dL Plasma Lactic Acid Martin (0.7-2.0) mmol/L Calcium (8.4-10.2) mg/dL Magnesium (1.6-2.3) mg/dL Total Bilirubin (0.2-1.3) mg/dL AST (17-59) U/L ALT (4-49) U/L Alkaline Phosphatase (38-126) U/L Troponin I (0.000-0.034) ng/mL NT-Pro-B Natriuret Pep pg/mL Total Protein (6.3-8.2) g/dL Albumin (3.5-5.0) g/dL Urine Color Yellow Urine Appearance Clear (Clear) Urine pH 7.5 (5.0-8.0) Ur Specific [place] 1.019 (1.001-1.035) Urine Protein Negative (Negative) Urine Glucose (UA) Negative (Negative) Urine Ketones Negative (Negative) Urine Blood Negative (Negative) Urine Nitrite Negative (Negative) Urine Bilirubin Negative (Negative) Urine Urobilinogen <2.0 (<2.0) mg/dL Ur Leukocyte Esterase Negative (Negative) 02/05/21 02/05/21 02/05/21 Range/Units 15:41 15:41 15:41 WBC (3.8-10.6) k/uL RBC (4.30-5.90) m/uL Hgb (13.0-17.5) gm/dL Hct (39.0-53.0) % MCV (80.0-100.0) fL MCH (25.0-35.0) pg MCHC (31.0-37.0) g/dL RDW (11.5-15.5) % Plt Count (150-450) k/uL MPV Neutrophils % % Lymphocytes % % Monocytes % % Eosinophils % % Basophils % % Neutrophils # (1.3-7.7) k/uL Lymphocytes # (1.0-4.8) k/uL Monocytes # (0-1.0) k/uL Eosinophils # (0-0.7) k/uL Basophils # (0-0.2) k/uL PT (9.0-12.0) sec INR (<1.2) APTT (22.0-30.0) sec D-Dimer (<0.60) mg/L FEU Sodium 135 L (137-145) mmol/L Potassium 4.5 (3.5-5.1) mmol/L Chloride 102 (98-107) mmol/L Carbon Dioxide 27 (22-30) mmol/L Anion Gap 6 mmol/L BUN 16 (9-20) mg/dL Creatinine 0.92 (0.66-1.25) mg/dL Est GFR (CKD-EPI)AfAm >90 (>60 ml/min/1.73 sqM) Est GFR (CKD-EPI)NonAf 85 (>60 ml/min/1.73 sqM) Glucose 121 H (74-99) mg/dL Plasma Lactic Acid Martin 1.1 (0.7-2.0) mmol/L Calcium 8.8 (8.4-10.2) mg/dL Magnesium 1.7 (1.6-2.3) mg/dL Total Bilirubin 0.4 (0.2-1.3) mg/dL AST 23 (17-59) U/L ALT 16 (4-49) U/L Alkaline Phosphatase 80 (38-126) U/L Troponin I <0.012 (0.000-0.034) ng/mL NT-Pro-B Natriuret Pep pg/mL Total Protein 6.7 (6.3-8.2) g/dL Albumin 3.8 (3.5-5.0) g/dL Urine Color Urine Appearance (Clear) Urine pH (5.0-8.0) Ur Specific [place] (1.001-1.035) Urine Protein (Negative) Urine Glucose (UA) (Negative) Urine Ketones (Negative) Urine Blood (Negative) Urine Nitrite (Negative) Urine Bilirubin (Negative) Urine Urobilinogen (<2.0) mg/dL Ur Leukocyte Esterase (Negative) 02/05/21 Range/Units 15:41 WBC (3.8-10.6) k/uL RBC (4.30-5.90) m/uL Hgb (13.0-17.5) gm/dL Hct (39.0-53.0) % MCV (80.0-100.0) fL MCH (25.0-35.0) pg MCHC (31.0-37.0) g/dL RDW (11.5-15.5) % Plt Count (150-450) k/uL MPV Neutrophils % % Lymphocytes % % Monocytes % % Eosinophils % % Basophils % % Neutrophils # (1.3-7.7) k/uL Lymphocytes # (1.0-4.8) k/uL Monocytes # (0-1.0) k/uL Eosinophils # (0-0.7) k/uL Basophils # (0-0.2) k/uL PT (9.0-12.0) sec INR (<1.2) APTT (22.0-30.0) sec D-Dimer (<0.60) mg/L FEU Sodium (137-145) mmol/L Potassium (3.5-5.1) mmol/L Chloride (98-107) mmol/L Carbon Dioxide (22-30) mmol/L Anion Gap mmol/L BUN (9-20) mg/dL Creatinine (0.66-1.25) mg/dL Est GFR (CKD-EPI)AfAm (>60 ml/min/1.73 sqM) Est GFR (CKD-EPI)NonAf (>60 ml/min/1.73 sqM) Glucose (74-99) mg/dL Plasma Lactic Acid Martin (0.7-2.0) mmol/L Calcium (8.4-10.2) mg/dL Magnesium (1.6-2.3) mg/dL Total Bilirubin (0.2-1.3) mg/dL AST (17-59) U/L ALT (4-49) U/L Alkaline Phosphatase (38-126) U/L Troponin I (0.000-0.034) ng/mL NT-Pro-B Natriuret Pep 311 pg/mL Total Protein (6.3-8.2) g/dL Albumin (3.5-5.0) g/dL Urine Color Urine Appearance (Clear) Urine pH (5.0-8.0) Ur Specific [place] (1.001-1.035) Urine Protein (Negative) Urine Glucose (UA) (Negative) Urine Ketones (Negative) Urine Blood (Negative) Urine Nitrite (Negative) Urine Bilirubin (Negative) Urine Urobilinogen (<2.0) mg/dL Ur Leukocyte Esterase (Negative) Disposition Clinical Impression: Acute chemical pneumonitis Disposition: ADMITTED IP TO THIS HOSP Condition: Fair Referrals: Cory Byrne MD [Primary Care Provider] - 1-2 days Decision Date: 02/05/21 Decision Time: 18:39
[2021-02-05 16:03] LABS: Prothrombin Time 10.4 sec (9.0-12.0)
[2021-02-05 16:10] LABS: HCT 43.6 % (39.0-53.0); HGB 14.1 gm/dL (13.0-17.5); MCH 28.2 pg (25.0-35.0); MCHC 32.4 g/dL (31.0-37.0); MCV 86.9 fL (80.0-100.0); Platelet Count 188 k/uL (150-450); RBC 5.02 m/uL (4.30-5.90); RDW 14.3 % (11.5-15.5); WBC 11.7 k/uL (3.8-10.6)
[2021-02-05 16:11] LABS: ALT 16 U/L (4-49); AST 23 U/L (17-59); African American GFR (CKD) >90 (>60 ml/min/1.73 sqM); Albumin 3.8 g/dL (3.5-5.0); Alkaline Phosphatase 80 U/L (38-126); Anion Gap 6 mmol/L; Basophils % (A) 0 %; Blood Urea Nitrogen 16 mg/dL (9-20); Calcium 8.8 mg/dL (8.4-10.2); Carbon Dioxide 27 mmol/L (22-30); Chloride 102 mmol/L (98-107); Eosinophils # (A) 0.1 k/uL (0-0.7); Eosinophils % (A) 1 %; Glucose 121 mg/dL (74-99); Lymphocytes # (A) 0.6 k/uL (1.0-4.8); Lymphocytes % (A) 5 %; Magnesium 1.7 mg/dL (1.6-2.3); Monocytes # (A) 0.6 k/uL (0-1.0); Monocytes % (A) 5 %; Neutrophils # (A) 10.3 k/uL (1.3-7.7); Neutrophils % (A) 88 %; Non-African American GFR(CKD) 85 (>60 ml/min/1.73 sqM); Potassium 4.5 mmol/L (3.5-5.1); Sodium 135 mmol/L (137-145); Total Bilirubin 0.4 mg/dL (0.2-1.3); Total Protein 6.7 g/dL (6.3-8.2)
--- NOTE | 2021-02-05 16:17 | XR ---
EXAMINATION TYPE: XR chest 2V DATE OF EXAM: 02/05/2021 COMPARISON: 12/19/2019 HISTORY: 70-year-old male with weakness TECHNIQUE: AP and lateral views FINDINGS: Heart upper limits of normal in size. Patchy bibasilar opacities, left greater than right. IMPRESSION: Bibasilar airspace disease, left greater than right. Correlate for possibilities of infectious or asp iration pneumonitis.
[2021-02-05 18:02] LABS: Appearance,Urine Clear (Clear); Bilirubin,Urine Negative (Negative); Blood,Urine Negative (Negative); Color,Urine Yellow; Glucose,Urine (UA) Negative (Negative); Ketones,Urine Negative (Negative); Leukocyte Esterase,Urine Negative (Negative); Nitrite,Urine Negative (Negative); PH, Urine 7.5 (5.0-8.0); Protein,Urine Negative (Negative); Specific Gravity,Urine 1.019 (1.001-1.035); Urobilinogen,Urine <2.0 mg/dL (<2.0)
[2021-02-05] MEDS ORDERED: IBUPROFEN 600 MG TAB PO STA (18:06)
[2021-02-05] MEDS ORDERED: cefTRIAXone IN SWFI 1,000 MG/10 ML SYRINGE IVP STA (18:07)
[2021-02-05] MEDS ORDERED: AZITHROMYCIN 500 MG in SODIUM CHLORIDE 0.9% 250 ML IVPB STA (18:08)
[2021-02-05] MEDS ORDERED: NITROGLYCERIN SL TABS 0.4 MG TAB SUBLINGUAL PRN (18:36)
[2021-02-05] MEDS ORDERED: methylPREDNISolone SOD SUCCI 125 MG/2 ML VIAL IV STA (18:36)
[2021-02-05] MEDS ORDERED: ALBUTEROL NEBULIZED 2.5 MG/3 ML INHALATION PRN (18:36)
[2021-02-05] MEDS ORDERED: NALOXONE 0.4 MG/ML 1 ML VIAL IV PRN (18:40)
--- NOTE | 2021-02-05 19:10 | CT ---
EXAMINATION TYPE: CT angio chest DATE OF EXAM: 02/05/2021 5:44 PM COMPARISON: Same day chest x-ray. CT chest 02/03/2017 HISTORY: Dizziness, hypertension, elevated d-dimer. CT DLP: 626.9 mGycm Automated exposure control for dose reduction was used. CONTRAST: CTA scan of the thorax is performed with IV Contrast, patient injected with 100 mL of Isovue 370, pul monary embolism protocol. . FINDINGS: LUNGS: Tracheobronchial tree is patent. There is a large patchy opacity of the left lower lobe. There is a 10 mm pulmonary nodule of the right lower lobe (4 6:77), unchanged versus 2017 comparison and m ost likely benign. There is mild centrilobular emphysema. No pleural effusion or pneumothorax. MEDIASTINUM: There is suboptimal enhancement of the pulmonary artery and its branches, with limited v isualization of the distal subsegmental pulmonary arteries. There is no CT evidence for large central pulmonary embolism. No axillary, mediastinal, or hilar lymphadenopathy. Cardiac size is normal. No p ericardial effusion is seen. Thoracic aorta is normal in caliber. OTHER: No additional significant abnormality is seen. IMPRESSION: 1. NO EVIDENCE OF LARGE CENTRAL PULMONARY EMBOLISM. 2. LARGE CONFLUENT AIRSPACE OPACITY OF THE LEFT LOWER LOBE. DIFFERENTIAL INCLUDES ASPIRATION PNEUMON IA.
[2021-02-05] MEDS: SODIUM CHLORIDE 0.9% 1,000 ML IV SCH (19:26)
[2021-02-05] MEDS: ATORVASTATIN 40 MG TAB PO SCH (21:36)
[2021-02-05] MEDS: MONTELUKAST 10 MG TAB PO SCH (21:37)
[2021-02-05] MEDS: SYMBICORT 160-4.5 MCG INHALER INHALATION SCH (22:30)
--- NOTE | 2021-02-06 07:57 | P.HPIM ---
History of Present Illness H&P Date: 02/06/21 Chief Complaint: Weakness and cough This is a history of physical 70-year-old white male with known history of CAD who states that she was helping someone paint coronary over the last several days in an area which did not have appropriate ventilation. He was not necessarily painting spraying but he was in the room socializing to take the left over paint. The patient started having significant cough. X-ray shows bilateral pneumonitis. The patient is admitted for this. After initial treatment he feels much better. No overt anginal symptoms. No nausea. No diaphoresis is stated. Fever was noted. Review of Systems Constitutional: Denies chills, Denies fever Eyes: denies blurred vision, denies pain Ears, nose, mouth and throat: Denies headache, Denies sore throat Cardiovascular: Reports as per HPI Respiratory: Reports as per HPI, Reports cough Gastrointestinal: Denies abdominal pain, Denies diarrhea, Denies nausea, Denies vomiting Musculoskeletal: Denies myalgias Past Medical History Past Medical History: Asthma, Hypertension, Myocardial Infarction ([place]) Additional Past Medical History / Comment(s): Pt states he has never been diagnosed with COPD, pt states he has had HTN and been on medication in past and then quit smoking and was taken off because he started running low pressures, occasional lower leg/pedal edema, bronchitis, stomach ulcer in past. History of Any Multi-Drug Resistant Organisms: None Reported Past Surgical History: Appendectomy Past Psychological History: No Psychological Hx Reported Smoking Status: Current every day smoker Past Alcohol Use History: Occasional Past Drug Use History: None Reported - Past Family History Mother Family Medical History: Dementia, Diabetes Mellitus Additional Family Medical History / Comment(s): Mother is 86yrs old and is a resident at [facility] Father Additional Family Medical History / Comment(s): Father at the age of 96yrs after a fall with rib fractures. Medications and Allergies Home Medications Medication Instructions Recorded Confirmed Type Montelukast [Singulair] 10 mg PO HS 02/03/17 02/05/21 History Fluticasone/Salmeterol [Advair 1 puff INHALATION RT-BID 12/19/19 02/05/21 History 500-50 Diskus] Aspirin 81 mg PO DAILY tab 12/21/19 02/05/21 Rx Atorvastatin [Lipitor] 40 mg PO HS #30 tab 12/21/19 02/05/21 Rx Nitroglycerin Sl Tabs [Nitrostat] 0.4 mg SUBLINGUAL Q5M PRN #50 tab 12/21/19 02/05/21 Rx Spironolactone [Aldactone] 25 mg PO DAILY #90 tab 12/21/19 02/05/21 Rx Albuterol Inhaler [Ventolin Hfa 2 puff INHALATION RT-QID PRN 02/05/21 02/05/21 History Inhaler] Ibuprofen [Advil] 200 mg PO Q8HR PRN 02/05/21 02/05/21 History Losartan Potassium [Cozaar] 50 mg PO DAILY 02/05/21 02/05/21 History Metoprolol Tartrate [Lopressor] 25 mg PO DAILY 02/05/21 02/05/21 History Allergies Allergy/AdvReac Type Severity Reaction Status Date / Time acetaminophen [From Tylenol] AdvReac Nausea & Verified 02/05/21 16:07 Vomiting Physical Exam Vitals: Vital Signs Temp Pulse Resp BP Pulse Ox 02/06/21 04:08 88 18 145/83 97 02/06/21 03:00 97.7 F 64 18 126/59 94 L 02/06/21 01:46 18 02/05/21 21:38 98.5 F 82 17 150/62 94 L 02/05/21 20:02 17 02/05/21 19:32 90 18 131/74 93 L 02/05/21 17:51 100.9 F H 96 20 121/72 94 L 02/05/21 15:23 20 02/05/21 15:00 89 L 02/05/21 14:49 99.4 F 107 H 18 150/74 93 L - Constitutional General appearance: obese - EENT Eyes: no abnormal pupil - Neck Neck: no lymphadenopathy - Respiratory Respiratory: bilateral: rhonchi - Cardiovascular Rhythm: regular Heart sounds: normal: S1, S2 Abnormal Heart Sounds: no S3 Gallop - Gastrointestinal General gastrointestinal: soft, no tenderness - Integumentary Integumentary: normal turgor - Neurologic Neurologic: CNII-XII intact - Musculoskeletal Musculoskeletal: strength equal bilaterally - Psychiatric Psychiatric: A&O x's 3 Results CBC & Chem 7: 02/05/21 15:41 02/05/21 15:41 Labs: Abnormal Lab Results - Last 24 Hours (Table) 02/05/21 02/05/21 02/05/21 Range/Units 15:41 15:41 15:41 WBC 11.7 H (3.8-10.6) k/uL Neutrophils # 10.3 H (1.3-7.7) k/uL Lymphocytes # 0.6 L (1.0-4.8) k/uL D-Dimer 1.08 H (<0.60) mg/L FEU Sodium 135 L (137-145) mmol/L Glucose 121 H (74-99) mg/dL Assessment and Plan (1) Acute chemical pneumonitis Current Visit: Yes Status: Acute Code(s): J68.0 - BRONCHITIS & PNEUMONITIS D/T CHEMICALS, GAS, FUMES & VAPORS SNOMED Code(s): 225079306 (2) Acute respiratory failure with hypoxia Current Visit: No Status: Acute Code(s): J96.01 - ACUTE RESPIRATORY FAILURE WITH HYPOXIA SNOMED Code(s): 22602309 (3) Sleep apnea syndrome Current Visit: No Status: Acute Code(s): G47.30 - SLEEP APNEA, UNSPECIFIED SNOMED Code(s): 76185038 Plan: Go ahead and place on appropriate antibiotic treatment as needed. Reconcile home medications. GI and DVT prophylaxis per protocol. Check CBC and CMP in a.m. Prognosis is guarded but improving. Time with Patient: Greater than 30
[2021-02-06] MEDS: SYMBICORT 160-4.5 MCG INHALER INHALATION SCH ×2 (08:04→19:26)
[2021-02-06] MEDS: SODIUM CHLORIDE 0.9% 1,000 ML IV SCH ×2 (08:09→23:28)
[2021-02-06] MEDS: METOPROLOL TARTRATE 25 MG TAB PO SCH (08:09)
[2021-02-06] MEDS: LOSARTAN 50 MG TAB PO SCH (08:09)
[2021-02-06] MEDS: ASPIRIN 81 MG PO SCH (08:09)
[2021-02-06] MEDS: SPIRONOLACTONE 25 MG TAB PO SCH (08:09)
--- NOTE | 2021-02-06 11:49 | P.CNPUL ---
History of Present Illness Consult date: 02/06/21 Requesting physician: Cory Byrne Reason for consult: dyspnea Chief complaint: Shortness of breath, weakness, dizziness History of present illness: This is a very pleasant 70-year-old gentleman who has a history of hypertension, myocardial infarction, hyperlipidemia. He also has chronic and ongoing tobacco dependence of greater than 50 years. He has significant COPD Gold stage III/IV with an FEV1 value 32% of predicted. He has been maintained on Advair and albuterol. He has nebulized treatments at home as well. He presented here to the emergency room yesterday with complaints of increasing shortness of breath, dizziness and weakness. Chest x-ray revealed bibasilar airspace disease left greater than right. ET angiogram ruled out pulmonary embolism. There is a large confluent airspace opacity in the left lower lobe. White count 11.7. Hemoglobin 14.1. D-dimer 1.08. Sodium 135. Potassium 4.5. Creatinine 0.92. Lactic acid 1.1. Glucose 121. Urinalysis clean. Contreras virus not detected. He is seen today in the emergency room. He is currently sitting up in a stretcher. Awake and alert in no acute distress. Breathing a bit easier today compared to yesterday. He has a loose nonproductive cough. No fever chills. Maintaining O2 saturations in the 90s on 2 L/m per nasal cannula. He is afebrile. Hemodynamically stable. He's been initiated on Symbicort, Singulair, albuterol, ceftriaxone and azithromycin. Review of Systems REVIEW OF SYSTEMS: CONSTITUTIONAL: Dizziness, weakness. Denies any recent significant weight loss or weight gain. EYES: Denies change in vision. EARS, NOSE, MOUTH, THROAT: Denies headaches, denies sore throat. CARDIOVASCULAR: Denies chest pain, palpitations or syncopal episodes. RESPIRATORY: Positive for shortness of breath, cough, congestion no hemoptysis. GASTROINTESTINAL: Denies change in appetite, denies abdominal pain GENITOURINARY: Denies hematuria, denies infections. MUSKULOSKELETAL: Denies pain, denies swelling. INTEGUMENTARY: Denies rash, denies eczema. NEUROLOGICAL: Denies recent memory loss, no recent seizure activity. PSYCHIATRIC: Denies anxiety, denies depression. HEMATOLOGIC/LYMPHATIC: Denies anemia, denies enlarged lymph nodes. Past Medical History Past Medical History: Asthma, Hypertension, Myocardial Infarction (CT) Additional Past Medical History / Comment(s): Pt states he has never been diagnosed with COPD, pt states he has had HTN and been on medication in past and then quit smoking and was taken off because he started running low pressures, occasional lower leg/pedal edema, bronchitis, stomach ulcer in past. History of Any Multi-Drug Resistant Organisms: None Reported Past Surgical History: Appendectomy Past Psychological History: No Psychological Hx Reported Smoking Status: Current every day smoker Past Alcohol Use History: Occasional Past Drug Use History: None Reported - Past Family History Mother Family Medical History: Dementia, Diabetes Mellitus Additional Family Medical History / Comment(s): Mother is 86yrs old and is a resident at [facility] Father Additional Family Medical History / Comment(s): Father at the age of 96yrs after a fall with rib fractures. Medications and Allergies Home Medications Medication Instructions Recorded Confirmed Type Montelukast [Singulair] 10 mg PO HS 02/03/17 02/05/21 History Fluticasone/Salmeterol [Advair 1 puff INHALATION RT-BID 12/19/19 02/05/21 History 500-50 Diskus] Aspirin 81 mg PO DAILY tab 12/21/19 02/05/21 Rx Atorvastatin [Lipitor] 40 mg PO HS #30 tab 12/21/19 02/05/21 Rx Nitroglycerin Sl Tabs [Nitrostat] 0.4 mg SUBLINGUAL Q5M PRN #50 tab 12/21/19 02/05/21 Rx Spironolactone [Aldactone] 25 mg PO DAILY #90 tab 12/21/19 02/05/21 Rx Albuterol Inhaler [Ventolin Hfa 2 puff INHALATION RT-QID PRN 02/05/21 02/05/21 History Inhaler] Ibuprofen [Advil] 200 mg PO Q8HR PRN 02/05/21 02/05/21 History Losartan Potassium [Cozaar] 50 mg PO DAILY 02/05/21 02/05/21 History Metoprolol Tartrate [Lopressor] 25 mg PO DAILY 02/05/21 02/05/21 History Allergies Allergy/AdvReac Type Severity Reaction Status Date / Time acetaminophen [From Tylenol] AdvReac Nausea & Verified 02/05/21 16:07 Vomiting Physical Exam Vitals: Vital Signs Temp Pulse Pulse Resp BP BP Pulse Ox 02/06/21 08:03 98.2 F 83 18 161/84 94 L 02/06/21 04:08 88 18 145/83 97 02/06/21 03:00 97.7 F 64 18 126/59 94 L 02/06/21 01:46 18 02/05/21 21:38 98.5 F 82 17 150/62 94 L 02/05/21 20:02 17 02/05/21 19:32 90 18 131/74 93 L 02/05/21 17:51 100.9 F H 96 20 121/72 94 L 02/05/21 15:23 20 02/05/21 15:00 89 L 02/05/21 14:49 99.4 F 107 H 18 150/74 93 L GENERAL EXAM: Alert, pleasant 70-year-old gentleman, on 2 L nasal cannula, fairly comfortable in no apparent distress. HEAD: Normocephalic. EYES: Normal reaction of pupils, equal size. NOSE: Clear with pink turbinates. THROAT: No erythema or exudates. NECK: No masses, no JVD. CHEST: No chest wall deformity. LUNGS: Equal air entry with crackles, rhonchi in the left lung base. CVS: S1 and S2 normal with no audible murmur, regular rhythm. ABDOMEN: No hepatosplenomegaly, normal bowel sounds, no guarding or rigidity. SPINE: No scoliosis or deformity SKIN: No rashes CENTRAL NERVOUS SYSTEM: No focal deficits, tone is normal in all 4 extremities. EXTREMITIES: There is no peripheral edema. No clubbing, no cyanosis. Peripheral pulses are intact. Results - Laboratory Findings CBC and BMP: 02/05/21 15:41 02/05/21 15:41 PT/INR, D-dimer PT 10.4 sec (9.0-12.0) 02/05/21 15:41 INR 1.0 (<1.2) 02/05/21 15:41 D-Dimer 1.08 mg/L FEU (<0.60) H 02/05/21 15:41 Abnormal lab findings: Abnormal Labs 02/05/21 02/05/21 02/05/21 15:41 15:41 15:41 WBC 11.7 H Neutrophils # 10.3 H Lymphocytes # 0.6 L D-Dimer 1.08 H Sodium 135 L Glucose 121 H - Diagnostic Findings Chest x-ray: image reviewed CT scan - chest: image reviewed Assessment and Plan Assessment: 1 Acute hypoxemic respiratory failure secondary to an acute left lower lobe pneumonia, community-acquired 2 Acute exacerbation of chronic obstructive pulmonary disease secondary to above 3 Chronic and ongoing tobacco dependence of greater than 50 years 4 History of myocardial infarction 5 Hypertension 6 Hyperlipidemia Plan: The patient was seen and evaluated by Dr. Clements X-ray, CAT scans and labs reviewed Continue ceftriaxone and azithromycin Continue Symbicort and albuterol Add Solu-Medrol Follow-up chest x-ray in a.m. We'll continue to follow and make further recommendations based on his clinical status I, the cosigning physician, performed a history & physical examination of the patient. Lungs sounds with end expiratory wheeze, rhonchi in the left lower lobe. Maintaining good O2 saturations in the 90s on 2 L/m per nasal cannula. I discussed the assessment and plan of care with my nurse practitioner, Kerline Mendiola. I attest to the above consultation as dictated by her. Time with Patient: Greater than 30
[2021-02-06] MEDS: methylPREDNISolone SOD SUCCI 125 MG/2 ML VIAL IV SCH ×2 (18:00→23:26)
[2021-02-06] MEDS: ATORVASTATIN 40 MG TAB PO SCH (19:53)
[2021-02-06] MEDS: MONTELUKAST 10 MG TAB PO SCH (19:53)
[2021-02-07] MEDS: methylPREDNISolone SOD SUCCI 125 MG/2 ML VIAL IV SCH ×3 (05:40→17:03)
--- NOTE | 2021-02-07 08:23 | P.PN ---
Subjective Principal diagnosis: Pneumonitis The patient is essentially 70-year-old white male admitted for pneumonitis. The patient is improving but still oxygen dependent. Voiding without difficulties. No fever stated. Blood sugar stable Objective - Vital Signs Vital signs: Vital Signs Temp 97.9 F 02/07/21 02:00 Pulse 76 02/07/21 02:00 Resp 18 02/07/21 02:00 BP 164/84 02/07/21 02:00 Pulse Ox 93 L 02/07/21 02:00 Intake & Output 02/06/21 02/07/21 02/07/21 18:59 06:59 18:59 Intake Total 236 Balance 236 Weight 117.027 kg Intake: Oral 236 Other: # Voids 1 - Constitutional General appearance: Present: obese - EENT Eyes: Absent: abnormal pupil - Neck Neck: Absent: lymphadenopathy - Respiratory Respiratory: right: rhonchi, left: diminished - Cardiovascular Rhythm: regular Heart sounds: normal: S1, S2 Abnormal Heart Sounds: Absent: S3 Gallop - Gastrointestinal General gastrointestinal: Present: soft. Absent: tenderness - Psychiatric Psychiatric: Present: A&O x's 3 - Labs CBC & Chem 7: 02/05/21 15:41 02/05/21 15:41 Assessment and Plan (1) Acute chemical pneumonitis Current Visit: Yes Status: Acute Code(s): J68.0 - BRONCHITIS & PNEUMONITIS D/T CHEMICALS, GAS, FUMES & VAPORS SNOMED Code(s): 075954421 (2) Acute respiratory failure with hypoxia Current Visit: No Status: Acute Code(s): J96.01 - ACUTE RESPIRATORY FAILURE WITH HYPOXIA SNOMED Code(s): 50141727 (3) Sleep apnea syndrome Current Visit: No Status: Acute Code(s): G47.30 - SLEEP APNEA, UNSPECIFIED SNOMED Code(s): 03409195 Plan: Continue current regimen of treatment. Appreciate pulmonary input. GI and DVT prophylaxis per protocol. Check CBC and CMP in a.m. Prognosis is guarded but improving.
[2021-02-07] MEDS: ASPIRIN 81 MG PO SCH (08:38)
[2021-02-07] MEDS: LOSARTAN 50 MG TAB PO SCH (08:38)
[2021-02-07] MEDS: METOPROLOL TARTRATE 25 MG TAB PO SCH (08:38)
[2021-02-07] MEDS: PANTOPRAZOLE 40 MG TABLET PO SCH (08:38)
[2021-02-07] MEDS: SPIRONOLACTONE 25 MG TAB PO SCH (08:38)
[2021-02-07] MEDS: SODIUM CHLORIDE 0.9% 1,000 ML IV SCH (08:38)
[2021-02-07] MEDS: SYMBICORT 160-4.5 MCG INHALER INHALATION SCH ×2 (08:52→20:37)
--- NOTE | 2021-02-07 16:00 | XR ---
EXAMINATION TYPE: XR chest 1V DATE OF EXAM: 02/07/2021 COMPARISON: Chest x-ray and chest CT 02/05/2021 HISTORY: Bibasilar infiltrates TECHNIQUE: Single frontal view of the chest is obtained. FINDINGS: Patchy basilar density persists. No evident pneumothorax. Cardiac mediastinal silhouette i s unchanged. IMPRESSION: Findings are similar to prior exam. Correlate for left lower lobe pneumonia, there is un derlying emphysema.
--- NOTE | 2021-02-07 17:53 | P.PN ---
Subjective Progress Note Date: 02/07/21 Principal diagnosis: Acute hypoxemic respiratory failure secondary to acute left lower lobe pneumonia, community-acquired This is a very pleasant 70-year-old gentleman who has a history of hypertension, myocardial infarction, hyperlipidemia. He also has chronic and ongoing tobacco dependence of greater than 50 years. He has significant COPD Gold stage III/IV with an FEV1 value 32% of predicted. He has been maintained on Advair and albuterol. He has nebulized treatments at home as well. He presented here to the emergency room yesterday with complaints of increasing shortness of breath, dizziness and weakness. Chest x-ray revealed bibasilar airspace disease left greater than right. ET angiogram ruled out pulmonary embolism. There is a large confluent airspace opacity in the left lower lobe. White count 11.7. Hemoglobin 14.1. D-dimer 1.08. Sodium 135. Potassium 4.5. Creatinine 0.92. Lactic acid 1.1. Glucose 121. Urinalysis clean. Contreras virus not detected. He is seen today in the emergency room. He is currently sitting up in a stretcher. Awake and alert in no acute distress. Breathing a bit easier today compared to yesterday. He has a loose nonproductive cough. No fever chills. Maintaining O2 saturations in the 90s on 2 L/m per nasal cannula. He is afebrile. Hemodynamically stable. He's been initiated on Symbicort, Singulair, albuterol, ceftriaxone and azithromycin. The patient is seen today 02/07/2021 in follow-up on the regular medical floor. He is currently resting comfortably in bed. Awake and alert in no acute distress. Doing a bit better today compared to yesterday. Maintaining good O2 saturations in the 90s on 2 L/m per nasal cannula. He is afebrile. X-ray continues to reveal a left lower lobe pneumonia. Patchy infiltrates persist. Underlying emphysema. He remains on Symbicort, albuterol, IV Solu-Medrol. 9 normal saline at 75 ML's per hour. Objective - Vital Signs Vital signs: Vital Signs Temp 98.6 F 02/07/21 14:00 Pulse 65 02/07/21 14:00 Resp 16 02/07/21 14:00 BP 179/66 02/07/21 14:00 Pulse Ox 92 L 02/07/21 14:00 Intake & Output 02/06/21 02/07/21 02/07/21 18:59 06:59 18:59 Intake Total 236 Balance 236 Weight 117.027 kg Intake: Oral 236 Other: # Voids 1 3 - Exam GENERAL EXAM: Alert, pleasant 70-year-old gentleman, on 2 L nasal cannula, fairly comfortable in no apparent distress. HEAD: Normocephalic. EYES: Normal reaction of pupils, equal size. NOSE: Clear with pink turbinates. THROAT: No erythema or exudates. NECK: No masses, no JVD. CHEST: No chest wall deformity. LUNGS: Equal air entry with crackles, rhonchi in the left lung base. CVS: S1 and S2 normal with no audible murmur, regular rhythm. ABDOMEN: No hepatosplenomegaly, normal bowel sounds, no guarding or rigidity. SPINE: No scoliosis or deformity SKIN: No rashes CENTRAL NERVOUS SYSTEM: No focal deficits, tone is normal in all 4 extremities. EXTREMITIES: There is no peripheral edema. No clubbing, no cyanosis. Peripheral pulses are intact. - Labs CBC & Chem 7: 02/05/21 15:41 02/05/21 15:41 Assessment and Plan Assessment: 1 Acute hypoxemic respiratory failure secondary to an acute left lower lobe pneumonia, community-acquired 2 Acute exacerbation of chronic obstructive pulmonary disease secondary to above 3 Chronic and ongoing tobacco dependence of greater than 50 years 4 History of myocardial infarction 5 Hypertension 6 Hyperlipidemia Plan: The patient was seen and evaluated by Dr. Clements Continue ceftriaxone and azithromycin Continue Symbicort and albuterol Continue Solu-Medrol We'll continue to follow I, the cosigning physician, performed a history & physical examination of the patient. Lungs sounds with rhonchi in the left lower lobe. Maintaining good O2 saturations in the 90s on 2 L/m per nasal cannula. I discussed the assessment and plan of care with my nurse practitioner, Kerline Mendiola. I attest to the above note as dictated by her.
[2021-02-07] MEDS: ATORVASTATIN 40 MG TAB PO SCH (20:09)
[2021-02-07] MEDS: MONTELUKAST 10 MG TAB PO SCH (20:09)
[2021-02-07] MEDS: AZITHROMYCIN 500 MG TAB PO SCH (20:09)
[2021-02-08] MEDS: methylPREDNISolone SOD SUCCI 125 MG/2 ML VIAL IV SCH ×4 (00:21→17:09)
[2021-02-08] MEDS: SODIUM CHLORIDE 0.9% 1,000 ML IV SCH ×2 (00:21→08:17)
[2021-02-08] MEDS: SYMBICORT 160-4.5 MCG INHALER INHALATION SCH ×2 (07:42→19:40)
[2021-02-08 07:46] LABS: ALT 17 U/L (4-49); AST 20 U/L (17-59); African American GFR (CKD) >90 (>60 ml/min/1.73 sqM); Albumin 3.6 g/dL (3.5-5.0); Albumin/Globulin Ratio 1.3; Alkaline Phosphatase 75 U/L (38-126); Anion Gap 7 mmol/L; Blood Urea Nitrogen 18 mg/dL (9-20); Calcium 8.9 mg/dL (8.4-10.2); Carbon Dioxide 26 mmol/L (22-30); Chloride 106 mmol/L (98-107); Globulin 2.8 g/dL; Glucose 165 mg/dL (74-99); Non-African American GFR(CKD) >90 (>60 ml/min/1.73 sqM); Potassium 4.3 mmol/L (3.5-5.1); Sodium 139 mmol/L (137-145); Total Bilirubin 0.1 mg/dL (0.2-1.3); Total Protein 6.4 g/dL (6.3-8.2)
[2021-02-08] MEDS: METOPROLOL TARTRATE 25 MG TAB PO SCH (08:17)
[2021-02-08] MEDS: PANTOPRAZOLE 40 MG TABLET PO SCH (08:17)
[2021-02-08] MEDS: ASPIRIN 81 MG PO SCH (08:17)
[2021-02-08] MEDS: SPIRONOLACTONE 25 MG TAB PO SCH (08:17)
[2021-02-08] MEDS: AZITHROMYCIN 500 MG TAB PO SCH (08:17)
[2021-02-08] MEDS: LOSARTAN 50 MG TAB PO SCH (08:17)
[2021-02-08 12:15] LABS: HCT 39.9 % (39.6-50.0); HGB 12.3 g/dL (13.0-17.0); MCH 27.5 pg (27.0-32.0); MCHC 30.8 g/dL (32.0-37.0); MCV 89.1 fL (80.0-97.0); Mean Platelet Volume 11.9 fL (9.5-12.2); Platelet Count 206 X 10*3/uL (140-440); RBC 4.48 X 10*6/uL (4.40-5.60); RDW 14.5 % (11.5-14.5)
--- NOTE | 2021-02-08 13:18 | P.PN ---
Subjective Progress Note Date: 02/08/21 On 02/08/2021, the patient is feeling better. The patient is less short of breath. Patient is currently on room air oxygen. She was being treated for an acute COPD exacerbation and left lower lobe pneumonia. The patient remains on a combination of Rocephin and Zithromax. The patient IV Solu-Medrol. The patient on DuoNeb nebulized treatments around the clock. The patient has a white cell count of 15.4. Hemoglobin is at 12.3. Electrodes are within normal limits. COVID-19 testing was negative. Objective - Vital Signs Vital signs: Vital Signs Temp 97.9 F 02/08/21 07:10 Pulse 79 02/08/21 08:16 Resp 18 02/08/21 07:10 BP 155/77 02/08/21 07:10 Pulse Ox 92 L 02/08/21 08:16 Intake & Output 02/07/21 02/08/21 02/08/21 18:59 06:59 18:59 Other: # Voids 3 4 - Exam GENERAL EXAM: Alert, pleasant 70-year-old gentleman, on room air oxygen HEAD: Normocephalic. EYES: Normal reaction of pupils, equal size. NOSE: Clear with pink turbinates. THROAT: No erythema or exudates. NECK: No masses, no JVD. CHEST: No chest wall deformity. LUNGS: Equal air entry with crackles, rhonchi in the left lung base. CVS: S1 and S2 normal with no audible murmur, regular rhythm. ABDOMEN: No hepatosplenomegaly, normal bowel sounds, no guarding or rigidity. SPINE: No scoliosis or deformity SKIN: No rashes CENTRAL NERVOUS SYSTEM: No focal deficits, tone is normal in all 4 extremities. EXTREMITIES: There is no peripheral edema. No clubbing, no cyanosis. Peripheral pulses are intact. - Labs CBC & Chem 7: 02/08/21 07:05 02/08/21 07:05 Labs: Abnormal Lab Results - Last 24 Hours (Table) 02/08/21 02/08/21 Range/Units 07:05 07:05 WBC 15.40 H (4.50-10.00) X 10*3/uL Hgb 12.3 L (13.0-17.0) g/dL MCHC 30.8 L (32.0-37.0) g/dL Glucose 165 H (74-99) mg/dL Total Bilirubin 0.1 L (0.2-1.3) mg/dL Assessment and Plan Plan: 1 Acute hypoxemic respiratory failure secondary to an acute left lower lobe pneumonia, community-acquired , clinically improving 2 Acute exacerbation of chronic obstructive pulmonary disease secondary to above, clinically improving currently on room air oxygen 3 Chronic and ongoing tobacco dependence of greater than 50 years 4 History of myocardial infarction 5 Hypertension 6 Hyperlipidemia Plan: Continue ceftriaxone and azithromycin Continue Symbicort and albuterol Continue Solu-Medrol Patient is currently improved. Continue antibiotics. Possible discharge in nex t 24 hours.
--- NOTE | 2021-02-08 16:28 | P.PN ---
Subjective This is a pleasant 70 years old male with multiple medical problems including COPD, hypertension, coronary artery disease. Presents because of respiratory distress and found to have left lower lobe pneumonia and acute COPD exacerbation. Chest currently still have extensive expiratory wheezing although he is saturating 90% on room air. Also his blood pressure is elevated 171/89 and he was started on Norvasc Labs showing leukocytosis of 15.4 while he is on steroids CTA of the chest on admission showing no pulmonary embolism and left lower lobe pneumonia He is covered with Zithromax and ceftriaxone. Skipped on normal saline at 75 mL/h,. IV fluid because of his blood pressure. He is eating and drinking and his creatinine is normal He is on Solu-Medrol 60 mg Objective - Vital Signs Vital signs: Vital Signs Temp 97.9 F 02/08/21 07:10 Pulse 79 02/08/21 08:16 Resp 18 02/08/21 07:10 BP 155/77 02/08/21 07:10 Pulse Ox 92 L 02/08/21 08:16 Intake & Output 02/07/21 02/08/21 02/08/21 18:59 06:59 18:59 Other: # Voids 3 4 - Exam GENERAL: The patient is alert and oriented x3, not in any acute distress. Well developed, well nourished. HEENT: Pupils are round and equally reacting to light. EOMI. No scleral icterus. No conjunctival pallor. Normocephalic, atraumatic. No pharyngeal erythema. No thyromegaly. CARDIOVASCULAR: S1 and S2 present. No murmurs, rubs, or gallops. -PULMONARY: Chest is clear to auscultation, extensive bilateral wheezing ABDOMEN: Soft, nontender, nondistended, normoactive bowel sounds. No palpable organomegaly. MUSCULOSKELETAL: No joint swelling or deformity. EXTREMITIES: No cyanosis, clubbing, or pedal edema. NEUROLOGICAL: Gross neurological examination did not reveal any focal deficits. SKIN: No rashes. no petechiae. - Labs CBC & Chem 7: 02/08/21 07:05 02/08/21 07:05 Labs: Abnormal Lab Results - Last 24 Hours (Table) 02/08/21 02/08/21 Range/Units 07:05 07:05 WBC 15.40 H (4.50-10.00) X 10*3/uL Hgb 12.3 L (13.0-17.0) g/dL MCHC 30.8 L (32.0-37.0) g/dL Glucose 165 H (74-99) mg/dL Total Bilirubin 0.1 L (0.2-1.3) mg/dL Assessment and Plan Assessment: Lower lobe pneumonia Acute COPD exacerbation Hypertension Mild leukocytosis secondary to steroid effect Plan: This is a pleasant 70 years old male who presents with COPD and pneumonia. Continue with saline Medrol and antibiotics and Zithromax and ceftriaxone Monitor blood pressure Labs and medication were reviewed.. Continue same treatment. Continue with symptomatic treatment. Resume home medication. Monitor lytes and vitals. DVT and GI prophylaxis. Further recommendationsas per clinical course of the patient DVT prophylaxis: Subcutaneous heparin GI Prophylaxis: Ppi PT/OT: Pending
[2021-02-08] MEDS: amLODIPine 5 MG TAB PO SCH (17:09)
[2021-02-08] MEDS: ATORVASTATIN 40 MG TAB PO SCH (21:14)
[2021-02-08] MEDS: HEPARIN SODIUM,PORCINE/PF 5,000 UNIT/0.5 ML SYRINGE SQ SCH (21:14)
[2021-02-08] MEDS: MONTELUKAST 10 MG TAB PO SCH (21:14)
[2021-02-09] MEDS: methylPREDNISolone SOD SUCCI 125 MG/2 ML VIAL IV SCH ×5 (00:06→23:44)
[2021-02-09] MEDS: amLODIPine 5 MG TAB PO SCH (07:26)
[2021-02-09] MEDS: SPIRONOLACTONE 25 MG TAB PO SCH (07:26)
[2021-02-09] MEDS: ASPIRIN 81 MG PO SCH (07:26)
[2021-02-09] MEDS: METOPROLOL TARTRATE 25 MG TAB PO SCH (07:26)
[2021-02-09] MEDS: LOSARTAN 50 MG TAB PO SCH (07:26)
[2021-02-09] MEDS: PANTOPRAZOLE 40 MG TABLET PO SCH (07:26)
[2021-02-09] MEDS: AZITHROMYCIN 500 MG TAB PO SCH (07:28)
[2021-02-09] MEDS: HEPARIN SODIUM,PORCINE/PF 5,000 UNIT/0.5 ML SYRINGE SQ SCH ×3 (07:28→21:18)
[2021-02-09] MEDS: SYMBICORT 160-4.5 MCG INHALER INHALATION SCH ×2 (07:49→21:10)
--- NOTE | 2021-02-09 10:51 | P.PN ---
Subjective Progress Note Date: 02/09/21 02/09/2021, the patient is doing well. No complaints. Is on room air oxygen. Being treated for left lower lobe pneumonia. Afebrile. Hemodynamically stable. No altered mentation. No cough sputum production or hemoptysis. Objective - Vital Signs Vital signs: Vital Signs Temp 97.9 F 02/09/21 07:35 Pulse 65 02/09/21 07:35 Resp 17 02/09/21 07:35 BP 168/79 02/09/21 07:35 Pulse Ox 91 L 02/09/21 07:35 Intake & Output 02/08/21 02/09/21 02/09/21 18:59 06:59 18:59 Intake Total 236 Balance 236 Intake: Oral 236 Other: # Voids 4 - Exam GENERAL EXAM: Alert, pleasant 70-year-old gentleman, on room air oxygen HEAD: Normocephalic. EYES: Normal reaction of pupils, equal size. NOSE: Clear with pink turbinates. THROAT: No erythema or exudates. NECK: No masses, no JVD. CHEST: No chest wall deformity. LUNGS: Equal air entry with crackles, rhonchi in the left lung base. CVS: S1 and S2 normal with no audible murmur, regular rhythm. ABDOMEN: No hepatosplenomegaly, normal bowel sounds, no guarding or rigidity. SPINE: No scoliosis or deformity SKIN: No rashes CENTRAL NERVOUS SYSTEM: No focal deficits, tone is normal in all 4 extremities. EXTREMITIES: There is no peripheral edema. No clubbing, no cyanosis. Peripheral pulses are intact. - Labs CBC & Chem 7: 02/08/21 07:05 02/08/21 07:05 Labs: Abnormal Lab Results - Last 24 Hours (Table) 02/08/21 Range/Units 07:05 WBC 15.40 H (4.50-10.00) X 10*3/uL Hgb 12.3 L (13.0-17.0) g/dL MCHC 30.8 L (32.0-37.0) g/dL Assessment and Plan Plan: 1 Acute hypoxemic respiratory failure secondary to an acute left lower lobe pneumonia, community-acquired , clinically improving 2 Acute exacerbation of chronic obstructive pulmonary disease secondary to above, clinically improving currently on room air oxygen 3 Chronic and ongoing tobacco dependence of greater than 50 years 4 History of myocardial infarction 5 Hypertension 6 Hyperlipidemia Plan: Continue ceftriaxone and azithromycin Continue Symbicort and albuterol Switch the IV Solu Medrol to prednisone burst taper Patient is currently improved. Continue antibiotics. Possible discharge in next 24 hours.
--- NOTE | 2021-02-09 11:09 | P.PN ---
Subjective This is a pleasant 70 years old male with multiple medical problems including COPD, hypertension, coronary artery disease. Presents because of respiratory distress and found to have left lower lobe pneumonia and acute COPD exacerbation. Chest currently still have extensive expiratory wheezing although he is saturating 90% on room air. Also his blood pressure is elevated 171/89 and he was started on Norvasc Labs showing leukocytosis of 15.4 while he is on steroids CTA of the chest on admission showing no pulmonary embolism and left lower lobe pneumonia He is covered with Zithromax and ceftriaxone. Skipped on normal saline at 75 mL/h,. IV fluid because of his blood pressure. He is eating and drinking and his creatinine is normal He is on Solu-Medrol 60 mg 02/09/2021 Patient still have some shortness of breath and tachypnea while his lying in bed although he saturating 91% on room air. Also he has some scattered wheezing. He is kept on Zithromax and ceftriaxone and sudden Medrol 60 mg daily. Norvasc is added for better blood pressure control and his blood pressure is better today 168/79. Also we discontinued IV fluids Dr. Byrne will resume the care of the patient tomorrow possible discharge in 24-48 hours if he keeps improved Objective - Vital Signs Vital signs: Vital Signs Temp 97.9 F 02/09/21 07:35 Pulse 65 02/09/21 07:35 Resp 17 02/09/21 07:35 BP 168/79 02/09/21 07:35 Pulse Ox 91 L 02/09/21 07:35 Intake & Output 02/08/21 02/09/21 02/09/21 18:59 06:59 18:59 Intake Total 236 Balance 236 Intake: Oral 236 Other: # Voids 4 - Exam GENERAL: The patient is alert and oriented x3, not in any acute distress. Well developed, well nourished. HEENT: Pupils are round and equally reacting to light. EOMI. No scleral icterus. No conjunctival pallor. Normocephalic, atraumatic. No pharyngeal erythema. No thyromegaly. CARDIOVASCULAR: S1 and S2 present. No murmurs, rubs, or gallops. -PULMONARY: Chest is clear to auscultation, extensive bilateral wheezing ABDOMEN: Soft, nontender, nondistended, normoactive bowel sounds. No palpable organomegaly. MUSCULOSKELETAL: No joint swelling or deformity. EXTREMITIES: No cyanosis, clubbing, or pedal edema. NEUROLOGICAL: Gross neurological examination did not reveal any focal deficits. SKIN: No rashes. no petechiae. - Labs CBC & Chem 7: 02/08/21 07:05 02/08/21 07:05 Labs: Abnormal Lab Results - Last 24 Hours (Table) 02/08/21 Range/Units 07:05 WBC 15.40 H (4.50-10.00) X 10*3/uL Hgb 12.3 L (13.0-17.0) g/dL MCHC 30.8 L (32.0-37.0) g/dL Assessment and Plan Assessment: Lower lobe pneumonia Acute COPD exacerbation Hypertension Mild leukocytosis secondary to steroid effect Plan: This is a pleasant 70 years old male who presents with COPD and pneumonia. Continue with saline Medrol and antibiotics and Zithromax and ceftriaxone Monitor blood pressure Labs and medication were reviewed.. Continue same treatment. Continue with symptomatic treatment. Resume home medication. Monitor lytes and vitals. DVT and GI prophylaxis. Further recommendationsas per clinical course of the patient DVT prophylaxis: Subcutaneous heparin GI Prophylaxis: Ppi PT/OT: Pending
[2021-02-09 14:25] VITALS: RESP 18
[2021-02-09] MEDS: MONTELUKAST 10 MG TAB PO SCH (20:46)
[2021-02-09] MEDS: ATORVASTATIN 40 MG TAB PO SCH (20:47)
[2021-02-10] MEDS: methylPREDNISolone SOD SUCCI 125 MG/2 ML VIAL IV SCH (05:52)
[2021-02-10] MEDS: LOSARTAN 50 MG TAB PO SCH (07:17)
[2021-02-10] MEDS: PANTOPRAZOLE 40 MG TABLET PO SCH (07:17)
[2021-02-10] MEDS: METOPROLOL TARTRATE 25 MG TAB PO SCH (07:17)
[2021-02-10] MEDS: ASPIRIN 81 MG PO SCH (07:17)
[2021-02-10] MEDS: SPIRONOLACTONE 25 MG TAB PO SCH (07:18)
[2021-02-10] MEDS: AZITHROMYCIN 500 MG TAB PO SCH (07:18)
[2021-02-10] MEDS: amLODIPine 5 MG TAB PO SCH (07:18)
[2021-02-10] MEDS: HEPARIN SODIUM,PORCINE/PF 5,000 UNIT/0.5 ML SYRINGE SQ SCH ×2 (07:18→07:19)
[2021-02-10 07:25] VITALS: BP 189/93; PULSE 62; TEMP 97.9
--- NOTE | 2021-02-10 08:10 | P.DS ---
Providers Date of admission: 02/05/21 19:07 Attending physician: Cory Byrne Consults: 02/05/21 18:42 Consult Physician Urgent Consulting Provider: Madai Clements Consult Reason/Comments: Pneumonitis with hypoxia Do you want consulting provider notified?: Yes Primary care physician: Cory Byrne - Discharge Diagnosis(es) (1) Acute chemical pneumonitis Current Visit: Yes Status: Acute (2) Acute respiratory failure with hypoxia Current Visit: No Status: Acute (3) Sleep apnea syndrome Current Visit: No Status: Acute Hospital Course: This discharge summary 62-year-old white male essentially admitted for pneumonitis bilateral related to fumes. The patient was stabilized with appropriate steroid treatment and antibiotics. The patient was tolerating diet and ambulating without difficulty and stabilized with pulmonology input. Patient Condition at Discharge: Fair Plan - Discharge Summary Discharge Rx Participant: No New Discharge Prescriptions: New predniSONE [Deltasone] 0 mg PO DIRECTED #18 tab No Action Montelukast [Singulair] 10 mg PO HS Fluticasone/Salmeterol [Advair 500-50 Diskus] 1 puff INHALATION RT-BID Aspirin 81 mg PO DAILY tab Atorvastatin [Lipitor] 40 mg PO HS #30 tab Nitroglycerin Sl Tabs [Nitrostat] 0.4 mg SUBLINGUAL Q5M PRN #50 tab PRN Reason: Chest Pain Spironolactone [Aldactone] 25 mg PO DAILY #90 tab Losartan Potassium [Cozaar] 50 mg PO DAILY Albuterol Inhaler [Ventolin Hfa Inhaler] 2 puff INHALATION RT-QID PRN PRN Reason: Shortness Of Breath Metoprolol Tartrate [Lopressor] 25 mg PO DAILY Ibuprofen [Advil] 200 mg PO Q8HR PRN PRN Reason: Pain Or Fever > 100.5 Discharge Medication List Montelukast [Singulair] 10 mg PO HS 02/03/17 [History] Fluticasone/Salmeterol [Advair 500-50 Diskus] 1 puff INHALATION RT-BID 12/19/19 [History] Aspirin 81 mg PO DAILY tab 12/21/19 [Rx] Atorvastatin [Lipitor] 40 mg PO HS #30 tab 12/21/19 [Rx] Nitroglycerin Sl Tabs [Nitrostat] 0.4 mg SUBLINGUAL Q5M PRN #50 tab 12/21/19 [Rx] Spironolactone [Aldactone] 25 mg PO DAILY #90 tab 12/21/19 [Rx] Albuterol Inhaler [Ventolin Hfa Inhaler] 2 puff INHALATION RT-QID PRN 02/05/21 [History] Ibuprofen [Advil] 200 mg PO Q8HR PRN 02/05/21 [History] Losartan Potassium [Cozaar] 50 mg PO DAILY 02/05/21 [History] Metoprolol Tartrate [Lopressor] 25 mg PO DAILY 02/05/21 [History] predniSONE [Deltasone] 0 mg PO DIRECTED #18 tab 02/10/21 [Rx] Follow up Appointment(s)/Referral(s): Cory Byrne MD [Primary Care Provider] - 1-2 days
[2021-02-10] MEDS: SYMBICORT 160-4.5 MCG INHALER INHALATION SCH (08:56)
== END 2021-02-10 09:46 | disposition home or self-care (01) | DRG 917 ==
LOC: EC 14:45 → 4SSUR 19:07
PROVIDERS: ADMIT Family Medicine; ATTEND Family Medicine
DX: T59.891A Toxic effect of other specified gases, fumes and vapors, accidental (unintentional), initial encounter (principal); J96.01 Acute respiratory failure with hypoxia; J68.0 Bronchitis and pneumonitis due to chemicals, gases, fumes and vapors; J44.1 Chronic obstructive pulmonary disease with (acute) exacerbation; Z20.822 Contact with and (suspected) exposure to COVID-19; D72.829 Elevated white blood cell count, unspecified; T38.0X5A Adverse effect of glucocorticoids and synthetic analogues, initial encounter; I10 Essential (primary) hypertension; E78.5 Hyperlipidemia, unspecified; I25.10 Atherosclerotic heart disease of native coronary artery without angina pectoris; G47.30 Sleep apnea, unspecified; I25.2 Old myocardial infarction; F17.200 Nicotine dependence, unspecified, uncomplicated; Z79.82 Long term (current) use of aspirin; Z79.51 Long term (current) use of inhaled steroids; Z79.899 Other long term (current) drug therapy; Z90.49 Acquired absence of other specified parts of digestive tract; Z87.19 Personal history of other diseases of the digestive system; Z98.890 Other specified postprocedural states; Z88.6 Allergy status to analgesic agent; Z83.3 Family history of diabetes mellitus; Z81.8 Family history of other mental and behavioral disorders
CPT/HCPCS: 36415; 71045; 71046; 71275; 80053; 81003; 83605; 83735; 83880; 84484; 85025; 85027; 85379; 85610; 85730; 87635; 93005; 94640; 94760; 96360; 99285